=== PATIENT | male | born 1970 | race Caucasian/White ===

== ENCOUNTER 2020-07-04 22:05 | Inpatient (IN) ==
--- OUTSIDE RECORDS SUMMARY | 2020-07-04 22:08 | External Medical Summary | Continuity of Care Document ---
:1970 Author Name Kerry High, Provider Address Unavailable Unavailable , Care Team Providers Name Role Phone Maite High, Ashely Unavailable [email or web address] Unavailable Problems Chronic kidney disease (585.9) (N18.9) Hypertension (401.9) (I10) Gout (274.9) (M10.9) Allergies and Adverse Reactions No Known Drug Allergies (Allergy) Medications Medications not documented Procedures Procedures not documented Immunizations PPD On: 26-Nov-2016 8:13 Lot #: [id number], [employer]FI PA[employer]UR Social History - Smoking Status Never smoked tobacco Plan of Treatment Planned Observations Planned Goals not documented Results No Known Results Results not documented Encounters Appointment; Nurse Radha 28-Nov-2016 7:15 Encounter Diagnosis: Problem not documented
[2020-07-04] MEDS ORDERED: GI COCKTAIL ED USE PO ONE (22:22)
--- NOTE | 2020-07-04 22:22 | Emergency Department Note ---
History of Present Illness General Chief complaint: Abdominal Pain Stated complaint: AB PAIN Time Seen by Provider: 07/04/20 22:12 History of Present Illness This is a 49-year-old male that presents to the emergency department via ambulance with complaints of "abdominal pain". The patient notes that this evening he ate an omelette with sausage as well as spinach, mushrooms and salsa. Then around 8 PM he began with what he describes as an indigestion sensation. This was periumbilical and radiated superiorly just under the diaphragm. He notes he has had 4 episodes that were brief in nature but were severe in regard to level of pain. He was concerned therefore prompting arrival here via ambulance. No trauma or injury. No fevers or chills. No chest pain or shortness of breath. No headache. Patient does note a past medical history for that of kidney disease. He notes that he has not seen his kidney specialist about 3-5 years and has not seen a PCP in about the same amount of time. He does not currently take any antihypertensives. No nausea or vomiting. He has never had any pain quite like this before. He does also note that about 3 weeks ago he had symptoms of which he thought were likely Covid, he had back and body aches. He feels much better now. No current abdominal pain at this time. Home Medications Medication Instructions Recorded Confirmed Type No Known Home Medications 07/05/20 07/05/20 History Allergies Allergy/AdvReac Type Severity Reaction Status Date / Time No Known Allergies Allergy Unknown Verified 07/05/20 00:26 Past Med/Surg History Medical History (Updated 07/05/20 @ 01:41 by Chase Nichols PA-C) Hx of kidney disease Surgical History No pertinent past surgical history Social History Smoking Status: Never smoker Preferred Language: Sami Feels Safe at Home: Yes Review of Systems A total of 10 systems reviewed and were otherwise negative Physical Exam Vital Signs Vital Signs - 24 hr 07/04/20 22:05 07/04/20 23:00 07/04/20 23:30 Temperature 37 C Temperature Source Oral Pulse Rate 72 80 76 Pulse Rhythm Regular Pulse Strength Normal Respiratory Rate 20 22 16 Respiratory Effort / Characteristics Non-Labored Spontaneous Respiratory Depth Normal Respiratory Pattern Regular Blood Pressure 255/130 H 233/126 H 234/123 H Blood Pressure Mean 171 161 146 Blood Pressure Position Lying Pulse Oximetry 96 96 97 Oxygen Delivery Method Room Air Sepsis Recent Fever Within 48 Hours No Sepsis New/Unexplained Change in Mental Status N/A Sepsis Action Taken by Nursing No Action Required 07/04/20 23:46 07/05/20 00:00 07/05/20 00:30 Temperature Temperature Source Pulse Rate 73 72 77 Pulse Rhythm Pulse Strength Respiratory Rate 16 18 20 Respiratory Effort / Characteristics Respiratory Depth Respiratory Pattern Blood Pressure 233/123 H 220/110 H 249/129 H Blood Pressure Mean 148 150 168 Blood Pressure Position Pulse Oximetry 96 96 96 Oxygen Delivery Method Sepsis Recent Fever Within 48 Hours Sepsis New/Unexplained Change in Mental Status Sepsis Action Taken by Nursing 07/05/20 00:51 07/05/20 01:00 Temperature Temperature Source Pulse Rate 71 74 Pulse Rhythm Pulse Strength Respiratory Rate 16 18 Respiratory Effort / Characteristics Respiratory Depth Respiratory Pattern Blood Pressure 220/116 H 221/127 H Blood Pressure Mean 135 138 Blood Pressure Position Pulse Oximetry 96 94 Oxygen Delivery Method Sepsis Recent Fever Within 48 Hours Sepsis New/Unexplained Change in Mental Status Sepsis Action Taken by Nursing VITAL SIGNS - Vital signs and nursing notes were reviewed. Significantly hypertensive, otherwise stable. GENERAL -49-year-old male appearing his stated age who is in no acute distress. Communicates well with provider and answers questions appropriately. SKIN - Without rashes. No meningeal or petechial rash. HEAD - NC/AT. EYES - PERRL with EOMI bilaterally. Sclera anicteric. EARS - No deformities of external structures noted on gross examination bilaterally. NOSE - Midline and without cyanosis. NECK - Neck with FROM. No nuchal rigidity. LUNGS - Chest wall symmetric without accessory muscle use, intercostals retractions, or central cyanosis. Normal vesicular breath sounds CTA B/L. No wheezes, rales, or rhonchi appreciated. CARDIAC - RRR with S1/S2. No murmur, rubs, or gallops appreciated. ABDOMEN - Abdominal contour normal without pulsations or visible masses. BS normoactive all four quadrants. Mild epigastric abdominal tenderness to palpation. No palpable masses, hepatosplenomegaly, or ascites noted. EXTREMITIES - No clubbing or peripheral cyanosis. +5/5 strength noted in UE/LE bilaterally. NEUROLOGIC - Cranial nerves II through XII grossly intact. PSYCH - A&O, and cooperates fully with examiner. Pt is very pleasant and interacts well with examiner. Course Administered Medications Discontinued Medications Al Hydrox/Mg Hydrox/Simethicone (Gi Cocktail Ed Use) 1 dose PO ONE ONE Stop: 07/04/20 22:23 Last Admin: 07/04/20 22:31 Dose: 1 dose Documented by: [id number] Ioversol (Optiray 320 125ml) 125 ml IV ONCE ONE Stop: 07/04/20 23:13 Last Admin: 07/04/20 23:12 Dose: 118 ml Documented by: [id number] Labetalol HCl (Labetalol Hcl Iv 5 Mg/Ml 20ml) 10 mg IV NOW STA Stop: 07/04/20 22:53 Last Admin: 07/04/20 23:41 Dose: 10 mg Documented by: [id number] Cosigned by: [id number] Medical Decision Making Laboratory Data Result diagrams: 07/04/20 22:20 07/04/20 22:20 Lab Results 07/04/20 07/04/20 07/04/20 Range/Units 22:20 22:20 22:20 WBC 16.41 H (4.8-10.8) K/uL RBC 5.07 (4.7-6.1) M/uL Hgb 14.3 (14.0-18.0) g/dL Hct 44.0 (42-52) % MCV 86.8 (80-100) fL MCH 28.2 (25-34) pg MCHC 32.5 (32-36) g/dL RDW Std Deviation 43.8 (36.4-46.3) fL RDW Coeff of Bret 14.0 (11.5-14.5) % Plt Count 165 (130-400) K/uL MPV 12.9 H (7.4-10.4) fL Immature Gran % (Auto) 0.3 % Neut % (Auto) 84.4 % Lymph % (Auto) 9.6 % Anderson % (Auto) 4.9 % Eos % (Auto) 0.6 % Baso % (Auto) 0.2 % Neut # (Auto) 13.85 H (1.4-6.5) K/uL Lymph # (Auto) 1.57 (1.2-3.4) K/uL Anderson # (Auto) 0.81 H (0.11-0.59) K/uL Eos # (Auto) 0.10 (0-0.5) K/uL Baso # (Auto) 0.03 (0-0.2) K/uL Immature Gran # (Auto) 0.05 H (0.00-0.02) K/uL PT 10.3 (9.0-12.0) Seconds INR 1.0 (0.9-1.1) APTT 28.9 (21.0-31.0) Seconds PTT Ratio 1.0 Sodium 141 (136-145) mmol/L Potassium 3.6 (3.5-5.1) mmol/L Chloride 105 (98-107) mmol/L Carbon Dioxide 28 (21-32) mmol/L Anion Gap 7.0 (3-11) BUN 32 H (7-18) mg/dl Creatinine 1.74 H (0.6-1.4) mg/dl Est Cr Clr Drug Dosing 66.9 ml/min Est GFR ( Amer) 52.2 Est GFR (Non-Af Amer) 45.0 BUN/Creatinine Ratio 18.3 (10-20) Glucose 109 H (70-99) mg/dl Calcium 9.3 (8.5-10.1) mg/dl Magnesium 2.0 (1.8-2.4) mg/dl Total Bilirubin 0.7 (0.2-1) mg/dl AST 85 H (15-37) U/L ALT 61 (12-78) U/L Alkaline Phosphatase 81 (45-117) U/L Troponin I 0.031 (0-0.045) ng/ml Total Protein 7.4 (6.4-8.2) gm/dl Albumin 3.3 L (3.4-5.0) gm/dl Globulin 4.1 H (2.5-4.0) gm/dl Albumin/Globulin Ratio 0.8 L (0.9-2) Lipase 1940 H (73-393) U/L TSH 3.250 (0.300-4.500) uIu/ml Urine Color Urine Appearance (Clear) Urine pH (4.5-7.5) Ur Specific [place] (1.000-1.030) Urine Protein (Negative) Urine Glucose (UA) (Negative) Urine Ketones (Negative) Urine Blood (Negative) Urine Nitrite (Negative) Urine Bilirubin (Negative) Urine Urobilinogen (Negative) Ur Leukocyte Esterase (Negative) Urine WBC (Auto) (0-5) /hpf Urine RBC (Auto) (0-4) /hpf U Hyaline Cast (Auto) (0-5) /lpf U Epithel Cells (Auto) (0-5) /lpf Urine Bacteria (Auto) (Negative) SARS-CoV-2 Ag (Rapid) (Negative) 07/05/20 07/05/20 Range/Units 00:01 00:55 WBC (4.8-10.8) K/uL RBC (4.7-6.1) M/uL Hgb (14.0-18.0) g/dL Hct (42-52) % MCV (80-100) fL MCH (25-34) pg MCHC (32-36) g/dL RDW Std Deviation (36.4-46.3) fL RDW Coeff of Bret (11.5-14.5) % Plt Count (130-400) K/uL MPV (7.4-10.4) fL Immature Gran % (Auto) % Neut % (Auto) % Lymph % (Auto) % Anderson % (Auto) % Eos % (Auto) % Baso % (Auto) % Neut # (Auto) (1.4-6.5) K/uL Lymph # (Auto) (1.2-3.4) K/uL Anderson # (Auto) (0.11-0.59) K/uL Eos # (Auto) (0-0.5) K/uL Baso # (Auto) (0-0.2) K/uL Immature Gran # (Auto) (0.00-0.02) K/uL PT (9.0-12.0) Seconds INR (0.9-1.1) APTT (21.0-31.0) Seconds PTT Ratio Sodium (136-145) mmol/L Potassium (3.5-5.1) mmol/L Chloride (98-107) mmol/L Carbon Dioxide (21-32) mmol/L Anion Gap (3-11) BUN (7-18) mg/dl Creatinine (0.6-1.4) mg/dl Est Cr Clr Drug Dosing ml/min Est GFR ( Amer) Est GFR (Non-Af Amer) BUN/Creatinine Ratio (10-20) Glucose (70-99) mg/dl Calcium (8.5-10.1) mg/dl Magnesium (1.8-2.4) mg/dl Total Bilirubin (0.2-1) mg/dl AST (15-37) U/L ALT (12-78) U/L Alkaline Phosphatase (45-117) U/L Troponin I (0-0.045) ng/ml Total Protein (6.4-8.2) gm/dl Albumin (3.4-5.0) gm/dl Globulin (2.5-4.0) gm/dl Albumin/Globulin Ratio (0.9-2) Lipase (73-393) U/L TSH (0.300-4.500) uIu/ml Urine Color Yellow Urine Appearance Clear (Clear) Urine pH 7.5 (4.5-7.5) Ur Specific [place] 1.028 (1.000-1.030) Urine Protein 2+ H (Negative) Urine Glucose (UA) Negative (Negative) Urine Ketones Negative (Negative) Urine Blood Trace H (Negative) Urine Nitrite Negative (Negative) Urine Bilirubin Negative (Negative) Urine Urobilinogen Negative (Negative) Ur Leukocyte Esterase Negative (Negative) Urine WBC (Auto) 1-5 (0-5) /hpf Urine RBC (Auto) 0-4 (0-4) /hpf U Hyaline Cast (Auto) 0 (0-5) /lpf U Epithel Cells (Auto) 5-10 H (0-5) /lpf Urine Bacteria (Auto) Negative (Negative) SARS-CoV-2 Ag (Rapid) Negative (Negative) Imaging Data Radiologist's Impression: CTA CHEST: No pulmonary embolism or acute aortic syndrome. Left lower lobe airspace opacities, nonspecific. Differential of pneumonia versus aspiration. Few scattered pulmonary nodules the largest in the right upper lobe measuring 6 mm on image 2-17. Radiologist: Rick Mueller MD Study ready at 23:32 and initial results transmitted at 23:43 CTA ABDOMEN & PELVIS With Contrast: Normal caliber of the abdominal aorta. No dissection. Branch vessels are widely patent. Liver, gallbladder, pancreas, and spleen are unremarkable. Nonobstructing nephrolithiasis in the right kidney. No obstructive uropathy. Colonic diverticulosis without diverticulitis. Radiologist: Rick Mueller MD Study ready at 23:39 and initial results transmitted at 23:45 MDM Narrative Patient was seen and evaluated as above in room a 12. Review was performed of nursing notes and vital signs. I did review pertinent previous visits and p atient history. After obtaining a thorough history and physical examination the above work up was performed. Patient presents to us today via ambulance with 4 episodes of severe abdominal pain. Currently asymptomatic. He is mildly tender in the epigastric region. Clinically he looks well. He does have significantly elevated blood pressure at this time. Although this may be a chronic finding, certainly will be treated as acute until proven otherwise. Given presentation, CTA chest, abdomen pelvis obtained particularly secondary to blood pressure as well. Benefit versus risk of these discussed with the patient and through shared decision making decided to proceed. Results as above. Reassuringly negative for any emergent process. Laboratory studies reveal mild leukocytosis 16.41 without anemia. Patient does have evidence of SATYA with creatinine 1.74 BUN at 32. AST 85. Lipase mildly elevated. TSH reveals euthyroid state. Proteinuria and mild hematuria noted. No evidence of UTI. Covid testing negative. EKG per my interpretation reveals sinus rhythm with PAC. Rate of 76 bpm. No ischemic change. QTc 459. Patient was previously on antihypertensives and does not take these any longer. He has not had his blood pressure checked in several years. Although the significant elevated blood pressure here could be chronic, he was given a one-time dose of labetalol to help minimally lower this in an attempt to move towards better blood pressure values for his overall benefit. I do believe that further evaluation and management in the inpatient setting would be warranted secondary to his significant hypertension. Case discussed with the hospitalist. Please refer to further documentation regarding his stay. Case was discussed with the attending physician. An order was placed for continuous cardiac monitoring. The monitor shows a rate of 74 with sinus rhythm. I attest that I have personally reviewed the patient medication list. I attest that I have reviewed the patient's blood pressure and it was found to be significantly elevated. GCS: 15 In the evaluation and treatment of this patient the following differential diagnoses were entertained: AL, PE, pericarditis, costochondritis, myocarditis, dissection, PE, GI upset, gastritis, esophagitis, food poisoning, among others. Impression & Plan Hypertensive urgency, Abdominal pain, acute, epigastric Discharge Plan Visit Data Chief Complaint: Abdominal Pain Stated Complaint: AB PAIN ED Provider: Satya Carrasco ED Midlevel Provider: Chsae Nichols Discharge Problem: Hypertensive urgency, Abdominal pain, acute, epigastric Patient Disposition: Admitted As Inpatient Condition: Good Forms Stand Alone Forms: [facility], Virtual Emergency Department, Important Visit Information Prescriptions Prescriptions: No Action No Known Home Medications RF: 0 Referrals Referrals: PCP,NO [Primary Care Provider] -
[2020-07-04 22:36] LABS: Basophils # (auto) 0.03 K/uL (0-0.2); Basophils % (auto) 0.2 %; Eosinophils % (auto) 0.6 %; Hemoglobin 14.3 g/dL (14.0-18.0); Immature Granulocytes # (auto) 0.05 K/uL (0.00-0.02); Immature Granulocytes % (auto) 0.3 %; Lymphocytes # (auto) 1.57 K/uL (1.2-3.4); Lymphocytes % (auto) 9.6 %; Mean Corpuscular Hemoglobin 28.2 pg (25-34); Mean Corpuscular Hgb Conc 32.5 g/dL (32-36); Mean Corpuscular Volume 86.8 fL (80-100); Mean Platelet Volume 12.9 fL (7.4-10.4); Monocytes # (auto) 0.81 K/uL (0.11-0.59); Monocytes % (auto) 4.9 %; Neutrophils # (auto) 13.85 K/uL (1.4-6.5); Neutrophils % (auto) 84.4 %; Platelet Count 165 K/uL (130-400); RDW Standard Deviation 43.8 fL (36.4-46.3); Red Blood Count 5.07 M/uL (4.7-6.1); White Blood Count 16.41 K/uL (4.8-10.8)
[2020-07-04] MEDS ORDERED: LABETALOL HCL IV 5 MG/ML 20ML IV STA (22:52)
[2020-07-04 22:56] LABS: Albumin Level 3.3 gm/dl (3.4-5.0); BUN Creatinine Ratio 18.3 (10-20); Calcium 9.3 mg/dl (8.5-10.1); Creatinine Clr Calc Pharmacy 66.9 ml/min; Est GFR (African American) 52.2; Potassium 3.6 mmol/L (3.5-5.1)
[2020-07-04 22:57] LABS: Partial Thromboplastin Time 28.9 Seconds (21.0-31.0); Prothrombin Time 10.3 Seconds (9.0-12.0)
[2020-07-04 23:07] LABS: Albumin Globulin Ratio 0.8 (0.9-2); Bilirubin,Total 0.7 mg/dl (0.2-1); Globulin 4.1 gm/dl (2.5-4.0); Thyroid Stimulating Hormone 3.25 uIu/ml (0.300-4.500); Total Protein 7.4 gm/dl (6.4-8.2); Troponin I 0.031 ng/ml (0-0.045)
[2020-07-04] MEDS ORDERED: OPTIRAY 320 125ml IV ONE (23:12)
[2020-07-05 00:16] LABS: Appearance Urine Clear (Clear); Bacteria Urine Automated Negative (Negative); Bilirubin Urine Negative (Negative); Blood Urine Trace (Negative); Cast Urine Automated 0 /lpf (0-5); Color Urine Yellow; Glucose Urine UA Negative (Negative); Ketones Urine Negative (Negative); Leukocyte Esterase Urine Negative (Negative); Nitrite Urine Negative (Negative); RBC Urine Automated 0-4 /hpf (0-4); Specific Gravity Urine 1.028 (1.000-1.030); Urobilinogen Urine Negative (Negative); pH Urine 7.5 (4.5-7.5)
[2020-07-05 00:18] LABS: Protein Urine 2+ (Negative)
[2020-07-05 00:19] LABS: Sulfosalicylic Acid Urine Positive (Negative)
[2020-07-05] MEDS ORDERED: dilTIAZem HCl 5 MG/ML 5 ML VIAL IV STA (01:48)
--- NOTE | 2020-07-05 01:50 | History & Physical Report ---
Date of Service July 05, 2020 Assessment & Plan (1) Food poisoning: Symptoms and history are suggestive of toxin induced food poisoning. Treat symptomatically with Zofran IV and IV fluid rehydration. Present on Admission?: Yes (2) Serum lipase elevation: Serum lipase elevated at 1940. CT of abdomen pelvis negative. Likely secondary to gastroenteritis associated with food poisoning. Repeat laboratories. Present on Admission?: Yes (3) Hypertensive urgency: Blood pressure was 249/129, with heart rate 80. He was given labetalol 10 mg IV by the ED with minimal improvement. Suspect his blood pressure has been chronically elevated and will have some resistance. Placed on Cardizem 10 mg IV now, and every 4 hours as needed systolic blood pressure greater than 160. Start Cardizem CD 60 mg p.o. 4 times daily. Present on Admission?: Yes (4) Chronic kidney disease (CKD): Creatinine 1.74 upon admission, with unknown baseline. Patient reports history of kidney disease and was followed by nephrology Dr. Maynard. Gentle rehydration with normal saline, repeat BMP, monitor blood pressure closely. Present on Admission?: Yes History of Present Illness Chief Complaint: The patient presents to the emergency department with complaint of acute onset of abdominal pain at 8:00 PM, after eating an omelette with sausage at 5:30 PM. Primary Care Provider: NO PCP The patient is a 49-year-old male with a past medical history including hypertension, CKD, and obesity. He presents to the emergency department with acute onset abdominal pain as noted above after eating an omelette with sausage. Upon questioning, he reports that the eggs were initially purchased in March by his son who was at college, who brought them home recently. He also reports that he had been followed by nephrology Dr. Maynard several years ago, had been on blood pressure medications, that were ultimately stopped because he had had weight loss and blood pressure improved. He has not followed up with anyone in the medical profession for approximately the past 5 years. Work-up in the emergency department included the following abnormal laboratories: WBC 16.41 with left shift, creatinine 1.74, BUN 32, glucose 109, AST 85, albumin 3.3, lipase 1940, and negative COVID-[address] scan of abdomen and pelvis was normal. Allergies Allergy/AdvReac Type Severity Reaction Status Date / Time No Known Allergies Allergy Unknown Verified 07/05/20 00:26 Home Medications Medication Instructions Recorded Confirmed Type No Known Home Medications 07/05/20 07/05/20 History Past Med/Surg History Medical History (Updated 07/05/20 @ 04:59 by Josias Ann MD) Hx of kidney disease Surgical History No pertinent past surgical history Social History Smoking Status: Never smoker Hx Alcohol Use: Yes Alcohol type: beer Hx Substance Use: No Preferred Language: Gibraltarian Communication Ability: Effective First Aid Director Required: No Beliefs That Will Affect Care: None Current Living Situation: Spouse Other Information That Helps Us Care for You: No Feels Safe at Home: Yes Safety Concerns: Feels Safe At This Time Assistive Devices: Contacts Review of Systems Review of Systems: The patient denies chest pain, palpitations, shortness of breath, dyspnea on exertion, cough, lower extremity swelling, sore throat, fevers, chills, sweats, vomiting, diarrhea, blood in urine or stool, dysuria, urinary frequency or urgency, lightheadedness, dizziness, headache, memory loss, loss of consciousness, rash, abnormal bruising or bleeding, imbalance, focal or generalized weakness, numbness or tingling in arms or legs, generalized arthralgias or myalgias, back or neck pain, or night sweats. The review of systems is otherwise negative other than for that already noted above, and at least 10 systems have been reviewed. Physical Exam Physical Exam: The patient is awake, alert and oriented 3, well developed and well nourished, normocephalic and atraumatic, lying in bed and in no acute distress. HEENT--PERRL, EOMI, mucous membranes and oropharynx dry. Neck--supple. No JVD. No bruits. Thyroid normal, trachea midline, no adenopathy. Heart--normal S1 and S2. No murmurs, rubs or gallops. Lungs--clear bilaterally, no respiratory distress, no accessory muscle use. Abdomen--normal bowel sounds and soft. Nontender. Nondistended. Obese Extremities--no cyanosis or clubbing. No edema. Dermatologic--normal skin turgor, normal color, no abnormal lymph nodes, no rash. Neurologic--cranial nerves II through XII grossly intact. Rheumatologic--normal range of motion. Psychiatric--normal affect. Results & Data Results & Data ([facility]) Vital Signs (Past 12 Hours) Vital Signs Temp Pulse Resp BP Pulse Ox 07/05/20 01:00 74 18 221/127 H 94 07/05/20 00:51 71 16 220/116 H 96 07/05/20 00:30 77 20 249/129 H 96 07/05/20 00:00 72 18 220/110 H 96 07/04/20 23:46 73 16 233/123 H 96 07/04/20 23:30 76 16 234/123 H 97 07/04/20 23:00 80 22 233/126 H 96 07/04/20 22:05 98.6 F 72 20 255/130 H 96 Laboratory Results Laboratory Results WBC 16.41 K/uL (4.8-10.8) H 07/04/20 22:20 RBC 5.07 M/uL (4.7-6.1) 07/04/20 22:20 Hgb 14.3 g/dL (14.0-18.0) 07/04/20 22:20 Hct 44.0 % (42-52) 07/04/20 22:20 MCV 86.8 fL (80-100) 07/04/20 22:20 MCH 28.2 pg (25-34) 07/04/20 22:20 MCHC 32.5 g/dL (32-36) 07/04/20 22:20 RDW Std Deviation 43.8 fL (36.4-46.3) 07/04/20 22:20 RDW Coeff of Bret 14.0 % (11.5-14.5) 07/04/20 22:20 Plt Count 165 K/uL (130-400) 07/04/20 22:20 MPV 12.9 fL (7.4-10.4) H 07/04/20 22:20 Immature Gran % (Auto) 0.3 % 07/04/20 22:20 Neut % (Auto) 84.4 % 07/04/20 22:20 Lymph % (Auto) 9.6 % 07/04/20 22:20 Frio % (Auto) 4.9 % 07/04/20 22:20 Eos % (Auto) 0.6 % 07/04/20 22:20 Baso % (Auto) 0.2 % 07/04/20 22:20 Neut # (Auto) 13.85 K/uL (1.4-6.5) H 07/04/20 22:20 Lymph # (Auto) 1.57 K/uL (1.2-3.4) 07/04/20 22:20 Frio # (Auto) 0.81 K/uL (0.11-0.59) H 07/04/20 22:20 Eos # (Auto) 0.10 K/uL (0-0.5) 07/04/20 22:20 Baso # (Auto) 0.03 K/uL (0-0.2) 07/04/20 22:20 Immature Gran # (Auto) 0.05 K/uL (0.00-0.02) H 07/04/20 22:20 PT 10.3 Seconds (9.0-12.0) 07/04/20 22:20 INR 1.0 (0.9-1.1) 07/04/20 22:20 APTT 28.9 Seconds (21.0-31.0) 07/04/20 22:20 PTT Ratio 1.0 07/04/20 22:20 Sodium 141 mmol/L (136-145) 07/04/20 22:20 Potassium 3.6 mmol/L (3.5-5.1) 07/04/20 22:20 Chloride 105 mmol/L (98-107) 07/04/20 22:20 Carbon Dioxide 28 mmol/L (21-32) 07/04/20 22:20 Anion Gap 7.0 (3-11) 07/04/20 22:20 BUN 32 mg/dl (7-18) H 07/04/20 22:20 Creatinine 1.74 mg/dl (0.6-1.4) H 07/04/20 22:20 Est Cr Clr Drug Dosing 66.9 ml/min 07/04/20 22:20 Est GFR ( Amer) 52.2 07/04/20 22:20 Est GFR (Non-Af Amer) 45.0 07/04/20 22:20 BUN/Creatinine Ratio 18.3 (10-20) 07/04/20 22:20 Glucose 109 mg/dl (70-99) H 07/04/20 22:20 Calcium 9.3 mg/dl (8.5-10.1) 07/04/20 22:20 Magnesium 2.0 mg/dl (1.8-2.4) 07/04/20 22:20 Total Bilirubin 0.7 mg/dl (0.2-1) 07/04/20 22:20 AST 85 U/L (15-37) H 07/04/20 22:20 ALT 61 U/L (12-78) 07/04/20 22:20 Alkaline Phosphatase 81 U/L (45-117) 07/04/20 22:20 Troponin I 0.031 ng/ml (0-0.045) 07/04/20 22:20 Total Protein 7.4 gm/dl (6.4-8.2) 07/04/20 22:20 Albumin 3.3 gm/dl (3.4-5.0) L 07/04/20 22:20 Globulin 4.1 gm/dl (2.5-4.0) H 07/04/20 22:20 Albumin/Globulin Ratio 0.8 (0.9-2) L 07/04/20 22: Lipase 1940 U/L (73-393) H 07/04/20 22:20 TSH 3.250 uIu/ml (0.300-4.500) 07/04/20 22:20 Urine Color Yellow 07/05/20 00:01 Urine Appearance Clear (Clear) 07/05/20 00:01 Urine pH 7.5 (4.5-7.5) 07/05/20 00:01 Ur Specific [place] 1.028 (1.000-1.030) 07/05/20 00:01 Urine Protein 2+ (Negative) H 07/05/20 00:01 Urine Glucose (UA) Negative (Negative) 07/05/20 00:01 Urine Ketones Negative (Negative) 07/05/20 00:01 Urine Blood Trace (Negative) H 07/05/20 00:01 Urine Nitrite Negative (Negative) 07/05/20 00:01 Urine Bilirubin Negative (Negative) 07/05/20 00:01 Urine Urobilinogen Negative (Negative) 07/05/20 00:01 Ur Leukocyte Esterase Negative (Negative) 07/05/20 00:01 Urine WBC (Auto) 1-5 /hpf (0-5) 07/05/20 00:01 Urine RBC (Auto) 0-4 /hpf (0-4) 07/05/20 00:01 U Hyaline Cast (Auto) 0 /lpf (0-5) 07/05/20 00:01 U Epithel Cells (Auto) 5-10 /lpf (0-5) H 07/05/20 00:01 Urine Bacteria (Auto) Negative (Negative) 07/05/20 00:01 SARS-CoV-2 Ag (Rapid) Negative (Negative) 07/05/20 00:55 Diagnostic Findings [facility] Patient: AVNI SIDDIQI (Male) : 70 Status: ER Date: 07/04/20 23:33 Room #: History: HYPERTENSION WITH ABD PAIN Slices: [phone] Priors: Tech: Aj Lemons @ [phone] Exams: CTA ABDOMEN & PELVIS With Contrast Contrast: IV Amt: 118 ML OPTIRAY 320 Accession Numbers: [id number] Preliminary Findings Only See Final Report For Complete Findings CTA ABDOMEN & PELVIS With Contrast: Normal caliber of the abdominal aorta. No dissection. Branch vessels are widely patent. Liver, gallbladder, pancreas, and spleen are unremarkable. Nonobstructing nephrolithiasis in the right kidney. No obstructive uropathy. Colonic diverticulosis without diverticulitis. Radiologist: Rick Mueller MD Study ready at 23:39 and initial results transmitted at 23:45 *This report constitutes a preliminary interpretation only. Non-acute findings felt to be unrelated to the clinical presentation may not be discussed in this report. The study will be interpreted and a final report will be generated by the local Radiologist the following shift. To reach the hospital radiology department call [phone]. If a discrepancy is found between the preliminary and final interpretations of t his study, please notify us via our Client Portal at [email or web address].You can also fax this report with a description of the discrepancy, or include the final report, to our daytime fax number [phone].If faxing, please indicate the severity of discrepancy using one of the following categories: [ ] 1 - Agree/Informational [ ] 2 - Unlikely to Affect Management [ ] 3 - Possible Eventual Change of Management [ ] 4 - Probable Immediate Change of Management For all other patient related information, please fax us at [phone]. [id number] Code Status & VTE Plan Code Status Full code VTE Prophylaxis Plan VTE Prophylaxis will be ordered: Yes PG Care Time/CCT Total # of Minutes Spent Total Time Spent with Patient: Total time spent is greater than 50% in coordination of care (as documented) at patient's floor/unit and/or counseling patient: Coding Level of Care Code 47909 Initial Inpt Care Lvl 3 Diagnoses Food poisoning A05.9 Serum lipase elevation R74.8 Hypertensive urgency I16.0 Chronic kidney disease (CKD) N18.9
[2020-07-05] MEDS: dilTIAZem HCl 5 MG/ML 5 ML VIAL IV PRN ×2 (02:27→14:03)
[2020-07-05] MEDS ORDERED: dilTIAZem HCl 60 MG TAB PO ONE (03:57)
[2020-07-05] MEDS ORDERED: SODIUM CHLORIDE 0.9% 1000ML 1,000 ML IV SCH (03:57)
[2020-07-05] MEDS ORDERED: ONDANSETRON INJ 2 MG/ML 2 ML VIAL IV PRN (03:57)
[2020-07-05] MEDS ORDERED: INFLUENZA ADMINISTRATION CHARGE ONE (04:15)
[2020-07-05] MEDS ORDERED: INFLUENZA VIRUS QUAD VACCINE 0.5 ML SYR IM ONE (04:15)
--- NOTE | 2020-07-05 06:54 | XRay Report ---
XR chest 1V portable HISTORY: 49 years-old Male epigastric abd pain acute epigastric abdominal pain. Acute atypical chest pain COMPARISON: CTA of the chest 07/04/2020 TECHNIQUE: Portable AP view of the chest FINDINGS: The cardiomediastinal and hilar silhouettes are within normal limits. There is no pneumothorax, pleur al effusion or overt pulmonary edema. Subtle patchy airspace opacities of the left lung base. Spondyl itic spurring of the thoracic spine. IMPRESSION: Minimal patchy airspace opacities of the left lung base are suspicious for pneumonia. ACT 112: Negative or not required by law. The above report was generated using voice recognition software. It may contain grammatical, syntax o r spelling errors. Electronically signed by: Valente Pena M.D. 07/05/2020 6:53 AM
--- NOTE | 2020-07-05 07:20 | CT Scan Report ---
CT ANGIOGRAPHY OF THE CHEST DISSECTION PROTOCOL CLINICAL HISTORY: Significant hypertension, intermittent abdominal pain. COMPARISON STUDY: Chest radiograph July 04, 2020. TECHNIQUE: Before and following the IV administration of 118 mL of Optiray-320, helical axial images of the chest were obtained. Maximal intensity projections and sagittal and coronal reformats were vi ewed on an independent 3D workstation. IV contrast was administered without complication. Automated exposure control was utilized for the study. A dose lowering technique was utilized adhering to the principles of ALARA. FINDINGS: Mild to moderate cardiomegaly is noted. There is no pericardial effusion. The ascending ao rta is ectatic, measuring 4.2 cm. There is no intramural hematoma. No thoracic or dissection is noted . There is no central pulmonary embolus. No enlarged thoracic lymph node are present. No pneumothorax or pleural effusion is noted. Multifocal irregular opacities within the left lower lobe likely refle ct pneumonia. A few right upper lobe pulmonary nodules measure up to 8 mm. Central airways are patent . Bony thorax is unremarkable. Abdomen and pelvis will be reported separately. IMPRESSION: 1. No thoracic aortic dissection. No central pulmonary embolus. Ectatic ascending aorta, measuring 4. 2 cm. 2. Moderate left lower lobe airspace opacities which favor pneumonia. Sequela of aspiration could sherlyn ear similar. A few right upper lobe nodular opacities that measure up to 8 mm. An infectious or infla mmatory etiology is also favored however pulmonary nodules could appear similar. Therefore, a follow- up chest CT in 3 months to ensure resolution is recommended. 3. Cardiomegaly. ACT 112: Positive. There are findings on this exam that require communication between the performing entity and the patient following Patient Test Result Information Act ([place] Act 112) guidelines. Electronically signed by: Ger Peterson M.D. 07/05/2020 7:19 AM
--- NOTE | 2020-07-05 07:56 | CT Scan Report ---
CT angio abdomen pelvis w con CLINICAL HISTORY: 49 years-old Male with Significant hypertension, intermittent abd pain . Acute h ypertension with generalized abdominal pain COMPARISON STUDY: CTA of the chest of same day TECHNIQUE: Following the IV administration of 118 cc of Optiray 320, CT angiogram of the abdomen and pelvis was performed from the lung bases the proximal femora. Images are reviewed in the axial, sagit gia, and coronal planes. 3-D MIPS images are created and assessed. All measurements were obtained acc ording to NASCET criteria. IV contrast was administered without complication. A dose lowering techni que was utilized adhering to the principles of ALARA. CT DOSE: 3264.01 mGy.cm FINDINGS: CTA: Mild to moderate cardiomegaly. 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 Equivocal linear transversely oriented struct ure is noted image 309 and 297 of series 7 which is unlikely to represent an acute dissection. Patent and unremarkable renal arteries. The superior and inferior mesenteric arteries are patent. Unremarka ble common, internal and extra iliac arteries. CT ABDOMEN/PELVIS: Patchy airspace opacities of the basal left lower lobe are partially imaged. There is no pneumatosis or pneumoperitoneum. The spleen and adrenal glands are unremarkable. The pancreatic duct measures the upper limits of normal at the level of the pancreatic head measuring 3-4 mm. No obstructing stone or lesion identified. The common bile duct measures the upper limits of normal at 7 mm. No intrahepatic biliary ductal dilation. There is mild gallbladder distention with equivocal gallbladder wall thicke gasper and pericholecystic stranding. No cholelithiasis identified. Indeterminate 1.5 cm hypodensity of the right hepatic lobe on image 241 series 7. Probable cyst of the right hepatic lobe measures 1.4 c m. There are 3 nonobstructing calculi of the left kidney measuring up to approximately 2-3 mm. A punctat e cortical calcification of the interpolar left kidney is also noted. 8 mm nonobstructing calculus of the interpolar right kidney with a 7 mm nonobstructing calculus of the inferior pole. There are a fe w tiny subcentimeter bilateral renal hypodensities which are incompletely characterized however favor cysts. No ureteral calculi or obstructive uropathy. There is an exophytic 2.7 x 2.0 cm intermediate density lesion of the inferior pole left kidney with [place]oun[place] of 23. Decompressed urinary bladder with wall thickening. Prominent prostate. No adenopathy. Mild nonspecific distal esophageal wall thickening. Colonic diverticulosis without acute diverticulit is. Noninflamed appendix. No ascites or mesenteric inflammation. Unremarkable soft tissues. Surgical clip of the right scrotum is partially imaged. Transitional lumbosacral anatomy. Mostly mild multilev el degenerative changes of the lumbar spine. IMPRESSION: 1. Distended gallbladder with mild gallbladder wall thickening and trace pericholecystic stranding. C orrelation with right upper quadrant ultrasound recommended to exclude acute cholecystitis. This find ing was called/faxed to the floor at time of dictation. 2. Patchy consolidative opacities of the basal left lower lobe suggest pneumonia. 3. Nonobstructing bilateral nephrolithiasis. 4. 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 Follow-up CTA in 6 months is recommended to further characterize. 5. No bowel obstruction or bowel wall thickening. Normal appendix. 6. Probable mildly complex exophytic cyst of the inferior pole left kidney, 2.7 cm. This could furthe r be characterized with ultrasound. 7. Additional findings as above. ACT 112: Negative or not required by law. The above report was generated using voice recognition software. It may contain grammatical, syntax o r spelling errors. Electronically signed by: Valente Pena M.D. 07/05/2020 7:54 AM
--- NOTE | 2020-07-05 08:18 | Hospitalist Progress Note ---
Date of Service July 05, 2020 Assessment & Plan (1) Cholecystitis: As seen on CT and gallbladder US Gen surg consulted - will go to OR tomorrow for cholecystectomy Continue Zosyn NPO after midnight (2) Pneumonia: Patchy consolidation seen in left lower lobe Patient's and family all diagnosed with COVID on Black Saturday and patient was symptomatic as well although he never received the results for the swab he had done. The rapid antigen test in the ED was negative. Will recheck with PCR Zosyn and azithromycin as likely patient may have secondary pneumonia following COVID infection (3) Serum lipase elevation: Serum lipase elevated at 1940, wnl on recheck CT of abdomen pelvis negative for pancreatitis (4) Hypertensive urgency: Blood pressure 180s-212/100-130 He was given labetalol 10 mg IV by the ED with minimal improvement. Suspect his blood pressure has been chronically elevated and will have some resistance especially given multiple aneurysms found on CT Continue cardizem 60 mg QID, cardizem 10 mg q4h prn, added captopril 12.5 mg now that kidney function is at baseline Start Cardizem CD 60 mg p.o. 4 times daily. (5) Chronic kidney disease (CKD): Creatinine 1.74 upon admission - patient reports baseline is 1.4-1.5 as of five years ago. Now at his baseline with creat of 1.42 Patient reports history of kidney disease and was followed by nephrology Dr. Maynard. 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 Follow-up CTA in 6 months is recommended to further characterize. Additionally on CTA of the chest: Ectatic ascending aorta, measuring 4.2 cm. Follow with pcp (7) Kidney cysts: Probable mildly complex exophytic cyst of the inferior pole left kidney, 2.7 cm. This could further be characterized with ultrasound. (8) Esophageal thickening: Mild nonspecific distal esophageal wall thickening. Follow with pcp (9) Pulmonary nodule: On CTA: A few right upper lobe nodular opacities that measure up to 8 mm. An infectious or inflammatory etiology is also favored however pulmonary nodules could appear similar. Therefore, a follow-up chest CT in 3 months to ensure resolution is recommended. Follow with pcp (10) Transaminitis: transaminases 215 and 271, alk phos 130, bili not elevated Continue to trend (11) DVT prophylaxis: SCDs, hold chemoprophylaxis in preparation for surgery Admission and Anticipated Discharge Date Admission Date: July 05, 2020 Subjective Mr. Chu is feeling better this morning. He does not have the abdominal pressure he was feeling pre hospital. The sob has improved. No cough, no chest pain. He is not nauseas. Review of Systems Constitutional: no fever, no chills and no body aches Cardiovascular: no chest pain and no palpitations Gastrointestinal: no abdominal pain, no nausea and no vomiting Genitourinary: no dysuria and no urinary hesitancy Musculoskeletal: no back pain and no joint pain Integumentary: no rash Physical Exam Physical Exam: General: no distress Eyes: normal inspection, PERLL Respiratory: chest non tender, clear to auscultation, normal breath sounds, no respiratory distress, no accessory muscle use Cardiac: regular rate and rhythm, no rub or gallop, no murmur, no edema, no jvd GI/: active bowel sounds, no abd pain or tenderness, soft, non distended Extremities: normal range of motion, normal strength, non tender Neuro/Psych: alert and oriented x 3, normal mood and affect Skin: normal color, dry Results & Data Results & Data ([facility]) Vital Signs (Past 12 Hours) Vital Signs Temp Pulse Pulse Resp BP BP Pulse Ox 07/05/20 03:45 37.3 C 70 20 200/86 H 96 07/05/20 03:00 69 18 210/116 H 96 07/05/20 02:39 73 18 204/111 H 95 07/05/20 02:30 69 16 184/125 H 95 07/05/20 02:00 69 20 187/125 H 96 07/05/20 01:30 74 22 232/142 H 96 07/05/20 01:00 74 18 221/127 H 94 07/05/20 00:51 71 16 220/116 H 96 07/05/20 00:30 77 20 249/129 H 96 07/05/20 00:00 72 18 220/110 H 96 07/04/20 23:46 73 16 233/123 H 96 07/04/20 23:30 76 16 234/123 H 97 07/04/20 23:00 80 22 233/126 H 96 07/04/20 22:05 37 C 72 20 255/130 H 96 PG Care Time/CCT Total # of Minutes Spent Total Time Spent with Patient: Total time spent is greater than 50% in coordination of care (as documented) at patient's floor/unit and/or counseling patient: Coding Level of Care Code 00799 Subseq Hosp Care Lvl 3 Diagnoses Cholecystitis K81.9 Pneumonia J18.9 Serum lipase elevation R74.8 Hypertensive urgency I16.0 Chronic kidney disease (CKD) N18.9 Aneurysm I72.9 Kidney cysts N28.1 Esophageal thickening K22.8 Pulmonary nodule R91.1 Transaminitis R74.01 DVT prophylaxis Z29.9
[2020-07-05] MEDS ORDERED: PIPERACILL/TAZOBAC CONSULT ACTIVE PRN (08:33)
[2020-07-05] MEDS ORDERED: AZITHROMYCIN 500 MG in DEXTROSE 5% 250 ML IV ONE (08:45)
[2020-07-05] MEDS ORDERED: PIPERACILLIN/TAZOBACTAM 3.375 GM in DEXTROSE 5% 100 ML IV ONE (09:00)
[2020-07-05 09:06] LABS: Hemoglobin 15.1 g/dL (14.0-18.0); Mean Corpuscular Hemoglobin 28.3 pg (25-34); Mean Corpuscular Hgb Conc 32.8 g/dL (32-36); Mean Corpuscular Volume 86.1 fL (80-100); Mean Platelet Volume 13.7 fL (7.4-10.4); Platelet Count 170 K/uL (130-400); RDW Coefficient of Variation 14.3 % (11.5-14.5); Red Blood Count 5.34 M/uL (4.7-6.1); White Blood Count 9.35 K/uL (4.8-10.8)
--- NOTE | 2020-07-05 09:15 | Ultrasound Report ---
US gallbladder HISTORY: 49 years-old Male r/o cholecystitis acute right upper quadrant abdominal pain COMPARISON: CTA abdomen and pelvis 07/04/2020 TECHNIQUE: Multiple real-time sonographic images of the abdominal right upper quadrant were obtained assessing grayscale appearance and color flow FINDINGS: The pancreas is obscured by bowel gas. Distended gallbladder with shadowing cholelithiasis. Gallbladd er wall measures the upper limits of normal at 3 mm. No definite pericholecystic fluid. Patient was r eportedly tender within the abdominal right upper quadrant however the sonographic Bill sign was re ported as negative. Common bile duct measures 7 mm. No obstructing biliary calculus or lesion. No int rahepatic biliary ductal dilation. Echogenic lesion of the right hepatic lobe, 1.6 x 1.8 x 1.3 cm without color flow. 9 mm nonobstructin g calculus of the right kidney without hydronephrosis. IMPRESSION: 1. Gallbladder distention with cholelithiasis. The gallbladder wall measures within the upper limits of normal at 3 mm. The equivocal pericholecystic edema seen on the CT study of same day is not apprec iated by ultrasound. These findings should be correlated clinically to exclude acute cholecystitis. N [facility] medicine hepatobiliary scan may also be considered. 2. No biliary ductal dilation. 3. Probable hemangioma of the right hepatic lobe, 1.8 cm. ACT 112: Negative or not required by law. The above report was generated using voice recognition software. It may contain grammatical, syntax o r spelling errors. Electronically signed by: Valente Pena M.D. 07/05/2020 9:14 AM
[2020-07-05] MEDS: dilTIAZem HCl 60 MG TAB PO SCH ×4 (09:28→20:08)
[2020-07-05 09:38] LABS: Albumin Level 3.4 gm/dl (3.4-5.0); BUN Creatinine Ratio 16.8 (10-20); Bilirubin Direct 0.2 mg/dl (0-0.2); Calcium 9.5 mg/dl (8.5-10.1); Creatinine Clr Calc Pharmacy 81.2 ml/min; Est GFR (African American) 66.7; Est GFR (Non-African American) 57.6; Potassium 3.9 mmol/L (3.5-5.1)
[2020-07-05 09:41] LABS: Bilirubin,Total 0.8 mg/dl (0.2-1); Total Protein 7.7 gm/dl (6.4-8.2)
[2020-07-05] MEDS: ACETAMINOPHEN 325 MG TAB PO PRN (11:59)
[2020-07-05 12:11] LABS: Troponin I 0.03 ng/ml (0-0.045)
--- NOTE | 2020-07-05 12:12 | Nuclear Medicine Report ---
NM hepatobiliary CLINICAL HISTORY: Abdominal pain. Cholelithiasis. COMPARISON STUDY: Gallbladder ultrasound dated 07/05/2020 FINDINGS: The patient was injected with 5.5 mCi of technetium 99m Choletec. Sequential anterior imagi ng was performed. Hepatic excretion appeared unremarkable. There is normal passage of activity into small bowel. The ga llbladder was first visualized on the 15 minute image. IMPRESSION: Normal study. No evidence of cystic duct obstruction. ACT 112: Negative or not required by law. Electronically signed by: Rashaad Schulz M.D. 07/05/2020 12:10 PM
--- NOTE | 2020-07-05 13:04 | Surgery Consultation ---
Date of Consultation July 05, 2020 Assessment & Plan (1) Acute cholecystitis due to biliary calculus: pt is a 49 year-old male who was admitted to hospital for acute abdominal pain, IMP: acute cholecystitis, cholelithiasis, pancreatitis Plan, I recommend to do laparoscopic cholecystectomy possible open or cholangiogram, D/W benefits, risks and alternatives of the surgery, the risks - infection, bleeding, injury CBD, or other organs, may need ERCP, anesthesia risks and . pt understood, he agrees with the surgery, I answered all questions, -control HTN, -NPO after MN,. -repeat labs in am, CBC, CMP, lipase Present on Admission?: Yes History of Present Illness Attending Physician: CC: acute abdominal pain History of Present Illness Chief Complaint: The patient presents to the emergency department with complaint of acute onset of abdominal pain at 8:00 PM, after eating an omelette with sausage at 5:30 PM. Primary Care Provider: NO PCP The patient is a 49-year-old male with a past medical history including hypertension, CKD, and obesity. He presents to the emergency department with acute onset abdominal pain as noted above after eating an omelette with sausage. Upon questioning, he reports that the eggs were initially purchased in March by his son who was at [employer], who brought them home recently. He also reports that he had been followed by nephrology Dr. Maynard several years ago, had been on blood pressure medications, that were ultimately stopped because he had had weight loss and blood pressure improved. He has not followed up with anyone in the medical profession for approximately the past 5 years. Work-up in the emergency department included the following abnormal laboratories: WBC 16.41 with left shift, creatinine 1.74, BUN 32, glucose 109, AST 85, albumin 3.3, lipase 1940, and negative COVID-[address] scan of abdomen and pelvis was normal. I ( Paul Benitez MD ) got a call for consult acute cholecystitis, I reviewed pt's H/P, labs, CT scan, U/S, HIDA scan with pt, pt feels better, Allergies Allergy/AdvReac Type Severity Reaction Status Date / Time No Known Allergies Allergy Unknown Verified 07/05/20 00:26 Home Medications Medication Instructions Recorded Confirmed Type No Known Home Medications 07/05/20 07/05/20 History Past Med/Surg History Medical History (Updated 07/05/20 @ 04:59 by Josias Ann MD) Hx of kidney disease Surgical History No pertinent past surgical history Social History Smoking Status: Never smoker Hx Alcohol Use: Yes Alcohol type: beer Hx Substance Use: No Preferred Language: French Communication Ability: Effective Fitter Machinist Required: No Beliefs That Will Affect Care: None Current Living Situation: Spouse Other Information That Helps Us Care for You: No Feels Safe at Home: Yes Safety Concerns: Feels Safe At This Time Assistive Devices: Contacts Review of Systems Review of Systems: The patient denies chest pain, palpitations, shortness of breath, dyspnea on exertion, cough, lower extremity swelling, sore throat, fevers, chills, sweats, vomiting, diarrhea, blood in urine or stool, dysuria, urinary frequency or urgency, lightheadedness, dizziness, headache, memory loss, loss of consciousness, rash, abnormal bruising or bleeding, imbalance, focal or generalized weakness, numbness or tingling in arms or legs, generalized arthralgias or myalgias, back or neck pain, or night sweats. The review of systems is otherwise negative other than for that already noted above, and at least 10 systems have been reviewed. Results & Data Results & Data ([facility]) Vital Signs (Past 12 Hours) Vital Signs Temp Pulse Resp BP Pulse Ox 07/05/20 01:00 74 18 221/127 H 94 07/05/20 00:51 71 16 220/116 H 96 07/05/20 00:30 77 20 249/129 H 96 07/05/20 00:00 72 18 220/110 H 96 07/04/20 23:46 73 16 233/123 H 96 07/04/20 23:30 76 16 234/123 H 97 07/04/20 23:00 80 22 233/126 H 96 07/04/20 22:05 98.6 F 72 20 255/130 H 96 Laboratory Results Laboratory Results WBC 16.41 K/uL (4.8-10.8) H 07/04/20 22:20 RBC 5.07 M/uL (4.7-6.1) 07/04/20 22:20 Hgb 14.3 g/dL (14.0-18.0) 07/04/20 22:20 Hct 44.0 % (42-52) 07/04/20 22:20 MCV 86.8 fL (80-100) 07/04/20 22:20 MCH 28.2 pg (25-34) 07/04/20 22:20 MCHC 32.5 g/dL (32-36) 07/04/20 22:20 RDW Std Deviation 43.8 fL (36.4-46.3) 07/04/20 22:20 RDW Coeff of Bret 14.0 % (11.5-14.5) 07/04/20:20 Plt Count 165 K/uL (130-400) 07/04/20 22:20 MPV 12.9 fL (7.4-10.4) H 07/04/20 22:20 Immature Gran % (Auto) 0.3 % 07/04/20 22:20 Neut % (Auto) 84.4 % 07/04/20 22:20 Lymph % (Auto) 9.6 % 07/04/20 22:20 [place] % (Auto) 4.9 % 07/04/20 22:20 Eos % (Auto) 0.6 % 07/04/20 22:20 Baso % (Auto) 0.2 % 07/04/20 22:20 Neut # (Auto) 13.85 K/uL (1.4-6.5) H 07/04/20 22:20 Lymph # (Auto) 1.57 K/uL (1.2-3.4) 07/04/20 22:20 [place] # (Auto) 0.81 K/uL (0.11-0.59) H 07/04/20 22:20 Eos # (Auto) 0.10 K/uL (0-0.5) 07/04/20 22:20 Baso # (Auto) 0.03 K/uL (0-0.2) 07/04/20 22:20 Immature Gran # (Auto) 0.05 K/uL (0.00-0.02) H 07/04/20 22:20 PT 10.3 Seconds (9.0-12.0) 07/04/20 22:20 INR 1.0 (0.9-1.1) 07/04/20 22:20 APTT 28.9 Seconds (21.0-31.0) 07/04/20 22:20 PTT Ratio 1.0 07/04/20 22:20 Sodium 141 mmol/L (136-145) 07/04/20 22:20 Potassium 3.6 mmol/L (3.5-5.1) 07/04/20 22:20 Chloride 105 mmol/L (98-107) 07/04/20 22:20 Carbon Dioxide 28 mmol/L (21-32) 07/04/20 22:20 Anion Gap 7.0 (3-11) 07/04/20 22:20 BUN 32 mg/dl (7-18) H 07/04/20 22:20 Creatinine 1.74 mg/dl (0.6-1.4) H 07/04/20 22:20 Est Cr Clr Drug Dosing 66.9 ml/min 07/04/20 22:20 Est GFR ( Amer) 52.2 07/04/20 22:20 Est GFR (Non-Af Amer) 45.0 07/04/20 22:20 BUN/Creatinine Ratio 18.3 (10-20) 07/04/20 22:20 Glucose 109 mg/dl (70-99) H 07/04/20 22:20 Calcium 9.3 mg/dl (8.5-10.1) 07/04/20 22:20 Magnesium 2.0 mg/dl (1.8-2.4) 07/04/20 22:20 Total Bilirubin 0.7 mg/dl (0.2-1) 07/04/20 22:20 AST 85 U/L (15-37) H 07/04/20 22:20 ALT 61 U/L (12-78) 07/04/20 22:20 Alkaline Phosphatase 81 U/L (45-117) 07/04/20 22:20 Troponin I 0.031 ng/ml (0-0.045) 07/04/20 22:20 Total Protein 7.4 gm/dl (6.4-8.2) 07/04/20 22:20 Albumin 3.3 gm/dl (3.4-5.0) L 07/04/20 22:20 Globulin 4.1 gm/dl (2.5-4.0) H 07/04/20 22:20 Albumin/Globulin Ratio 0.8 (0.9-2) L 07/04/20 22:20 Lipase 1940 U/L (73-393) H 07/04/20 22:20 TSH 3.250 uIu/ml (0.300-4.500) 07/04/20 22:20 Urine Color Yellow 07/05/20 00:01 Urine Appearance Clear (Clear) 07/05/20 00:01 Urine pH 7.5 (4.5-7.5) 07/05/20 00:01 Ur Specific [place] 1.028 (1.000-1.030) 07/05/20 00:01 Urine Protein 2+ (Negative) H 07/05/20 00:01 Urine Glucose (UA) Negative (Negative) 07/05/20 00:01 Urine Ketones Negative (Negative) 07/05/20 00:01 Urine Blood Trace (Negative) H 07/05/20 00:01 Urine Nitrite Negative (Negative) 07/05/20 00:01 Urine Bilirubin Negative (Negative) 07/05/20 00:01 Urine Urobilinogen Negative (Negative) 07/05/20 00:01 Ur Leukocyte Esterase Negative (Negative) 07/05/20 00:01 Urine WBC (Auto) 1-5 /hpf (0-5) 07/05/20 00:01 Urine RBC (Auto) 0-4 /hpf (0-4) 07/05/20 00:01 U Hyaline Cast (Auto) 0 /lpf (0-5) 07/05/20 00:01 U Epithel Cells (Auto) 5-10 /lpf (0-5) H 07/05/20 00:01 Urine Bacteria (Auto) Negative (Negative) 07/05/20 00:01 SARS-CoV-2 Ag (Rapid) Negative (Negative) 07/05/20 00:55 Diagnostic Findings [facility] Patient: AVNI SIDDIQI (Male) : 70 Status: ER Date: 07/04/20 23:33 Room #: History: HYPERTENSION WITH ABD PAIN Slices: [phone] Priors: Tech: Aj Lemons @ [phone] Exams: CTA ABDOMEN & PELVIS With Contrast Contrast: IV Amt: 118 ML OPTIRAY 320 Accession Numbers: [id number] Preliminary Findings Only See Final Report For Complete Findings CTA ABDOMEN & PELVIS With Contrast: Normal caliber of the abdominal aorta. No dissection. Branch vessels are widely patent. Liver, gallbladder, pancreas, and spleen are unremarkable. Nonobstructing nephrolithiasis in the right kidney. No obstructive uropathy. Colonic diverticulosis without diverticulitis. Allergies Allergy/AdvReac Type Severity Reaction Status Date / Time No Known Allergies Allergy Unknown Verified 07/05/20 00:26 Home Medications Medication Instructions Recorded Confirmed Type No Known Home Medications 07/05/20 07/05/20 History Patient History Medical History (Updated 07/05/20 @ 13:13 by Paul Benitez MD) Hx of kidney disease Surgical History No pertinent past surgical history Social History Smoking Status: Never smoker Hx Alcohol Use: Yes Alcohol type: beer Hx Substance Use: No Preferred Language: French Communication Ability: Effective Fitter Machinist Required: No Beliefs That Will Affect Care: None marital status: Current Living Situation: Spouse Other Information That Helps Us Care for You: No Feels Safe at Home: Yes Safety Concerns: Feels Safe At This Time Assistive Devices: None Review of Systems Review of Systems: All systems reviewed & are unremarkable except as noted in HPI & below Constitutional: as per Subjective / HPI obesity Eyes: as per Subjective / HPI Ear, Nose, Mouth, Throat: as per Subjective / HPI Respiratory: lung nodule Cardiovascular: as per Subjective / HPI Additional Comments: HTN urgency, aneurysm Gastrointestinal: as per Subjective / HPI Genitourinary: + as per Subjective / HPI and + problem reported (kidney cysts) Musculoskeletal: as per Subjective / HPI Integumentary: as per Subjective / HPI Neurologic: as per Subjective / HPI Psychiatric: as per Subjective / HPI Endocrine: as per Subjective / HPI Hematologic / Lymphatic: as per Subjective / HPI Allergy / Immunological: as per Subjective / HPI Physical Exam Constitutional: WD/WN, vitals as above well developed and well nourished Eyes: PERRL, conjunctivae normal, anicteric sclerae ENMT: external ear and nose normal, oropharynx normal Neck: trachea midline, no thyromegaly Respiratory: normal respiratory effort, lungs clear to auscultation normal respiratory effort Cardiovascular: RRR, no murmur, no edema Rate/Rhythm: regular rate and regular rhythm Heart Sounds: normal S1 and normal S2 Gastrointestinal (Abdomen): Percussion/Palpation: + abdomen tender and abdomen soft mild tenderness at RUQ, no rebound pain, no distend, BS + Musculoskeletal: no cyanosis or clubbing, extremities motor strength 5/5 Skin: no rashes, warm and dry Neurologic: awake Psychiatric: Orientation: alert and oriented x 3 Results & Data ([facility]) Vital Signs (Past 12 Hours) Vital Signs Temp Pulse Pulse Resp BP BP Pulse Ox 07/05/20 12:46 37.0 C 78 20 210/105 H 98 07/05/20 08:41 36.4 C L 68 18 186/117 H 95 07/05/20 03:45 37.3 C 70 20 200/86 H 96 07/05/20 03:00 69 18 210/116 H 96 07/05/20 02:39 73 18 204/111 H 95 07/05/20 02:30 69 16 184/125 H 95 07/05/20 02:00 69 20 187/125 H 96 07/05/20 01:30 74 22 232/142 H 96 NM hepatobiliary CLINICAL HISTORY: Abdominal pain. Cholelithiasis. COMPARISON STUDY: Gallbladder ultrasound dated 07/05/2020 FINDINGS: The patient was injected with 5.5 mCi of technetium 99m Choletec. Sequential anterior imaging was performed. Hepatic excretion appeared unremarkable. There is normal passage of activity into small bowel. The gallbladder was first visualized on the 15 minute image. IMPRESSION: Normal study. No evidence of cystic duct obstruction. Laboratory Results Abnormal lab results 07/04/20 07/04/20 07/05/20 Range/Units : 22: 00:01 WBC 16.41 H (4.8-10.8) K/uL MPV 12.9 H (7.4-10.4) fL Neut # (Auto) 13.85 H (1.4-6.5) K/uL [place] # (Auto) 0.81 H (0.11-0.59) K/uL Immature Gran # (Auto) 0.05 H (0.00-0.02) K/uL BUN 32 H (7-18) mg/dl Creatinine 1.74 H (0.6-1.4) mg/dl Glucose 109 H (70-99) mg/dl AST 85 H (15-37) U/L ALT (12-78) U/L Alkaline Phosphatase (45-117) U/L Albumin 3.3 L (3.4-5.0) gm/dl Globulin 4.1 H (2.5-4.0) gm/dl Albumin/Globulin Ratio 0.8 L (0.9-2) Lipase 1940 H (73-393) U/L Urine Protein 2+ H (Negative) Urine Blood Trace H (Negative) U Epithel Cells (Auto) 5-10 H (0-5) /lpf 07/05/20 07/05/20 Range/Units 08:31 08:31 WBC (4.8-10.8) K/uL MPV 13.7 H (7.4-10.4) fL Neut # (Auto) (1.4-6.5) K/uL [place] # (Auto) (0.11-0.59) K/uL Immature Gran # (Auto) (0.00-0.02) K/uL BUN 24 H (7-18) mg/dl Creatinine 1.42 H D (0.6-1.4) mg/dl Glucose (70-99) mg/dl AST 215 H (15-37) U/L ALT 271 H (12-78) U/L Alkaline Phosphatase 130 H (45-117) U/L Albumin (3.4-5.0) gm/dl Globulin (2.5-4.0) gm/dl Albumin/Globulin Ratio (0.9-2) Lipase (73-393) U/L Urine Protein (Negative) Urine Blood (Negative) U Epithel Cells (Auto) (0-5) /lpf Diagnostic Findings US gallbladder HISTORY: 49 years-old Male r/o cholecystitis acute right upper quadrant abdominal pain COMPARISON: CTA abdomen and pelvis 07/04/2020 TECHNIQUE: Multiple real-time sonographic images of the abdominal right upper quadrant were obtained assessing grayscale appearance and color flow FINDINGS: The pancreas is obscured by bowel gas. Distended gallbladder with shadowing cholelithiasis. Gallbladder wall measures the upper limits of normal at 3 mm. No definite pericholecystic fluid. Patient was reportedly tender within the abdominal right upper quadrant however the sonographic Bill sign was reported as negative. Common bile duct measures 7 mm. No obstructing biliary calculus or lesion. No intrahepatic biliary ductal dilation. Echogenic lesion of the right hepatic lobe, 1.6 x 1.8 x 1.3 cm without color flow. 9 mm nonobstructing calculus of the right kidney without hydronephrosis. IMPRESSION: 1. Gallbladder distention with cholelithiasis. The gallbladder wall measures within the upper limits of normal at 3 mm. The equivocal pericholecystic edema seen on the CT study of same day is not appreciated by ultrasound. These findings should be correlated clinically to exclude acute cholecystitis. Nuclear medicine hepatobiliary scan may also be considered. 2. No biliary ductal dilation. 3. Probable hemangioma of the right hepatic lobe, 1.[address] angio abdomen pelvis w con CLINICAL HISTORY: 49 years-old Male with Significant hypertension, intermittent abd pain . Acute hypertension with generalized abdominal pain COMPARISON STUDY: CTA of the chest of same day TECHNIQUE: Following the IV administration of 118 cc of Optiray 320, CT angiogram of the abdomen and pelvis was performed from the lung bases the proximal femora. Images are reviewed in the axial, sagittal, and coronal planes. 3-D MIPS images are created and assessed. All measurements were obtained according to NASCET criteria. IV contrast was administered without complication. A dose lowering technique was utilized adhering to the principles of ALARA. CT DOSE: 3264.01 mGy.cm FINDINGS: CTA: Mild to moderate cardiomegaly. 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 Equivocal linear transversely oriented structure is noted image 309 and 297 of series 7 which is unlikely to represent an acute dissection. Patent and unremarkable renal arteries. The superior and inferior mesenteric arteries are patent. Unremarkable common, internal and extra iliac arteries. CT ABDOMEN/PELVIS: Patchy airspace opacities of the basal left lower lobe are partially imaged. There is no pneumatosis or pneumoperitoneum. The spleen and adrenal glands are unremarkable. The pancreatic duct measures the upper limits of normal at the level of the pancreatic head measuring 3-4 mm. No obstructing stone or lesion identified. The common bile duct measures the upper limits of normal at 7 mm. No intrahepatic biliary ductal dilation. There is mild gallbladder distention with equivocal gallbladder wall thickening and pericholecystic stranding. No cholelithiasis identified. Indeterminate 1.5 cm hypodensity of the right hepatic lobe on image 241 series 7. Probable cyst of the right hepatic lobe measures 1.4 cm. There are 3 nonobstructing calculi of the left kidney measuring up to approximately 2-3 mm. A punctate cortical calcification of the interpolar left kidney is also noted. 8 mm nonobstructing calculus of the interpolar right kidney with a 7 mm nonobstructing calculus of the inferior pole. There are a few tiny subcentimeter bilateral renal hypodensities which are incompletely characterized however favor cysts. No ureteral calculi or obstructive uropathy. There is an exophytic 2.7 x 2.0 cm intermediate density lesion of the inferior pole left kidney with [place] of 23. Decompressed urinary bladder with wall thickening. Prominent prostate. No rashel nopathy. Mild nonspecific distal esophageal wall thickening. Colonic diverticulosis without acute diverticulitis. Noninflamed appendix. No ascites or mesenteric inflammation. Unremarkable soft tissues. Surgical clip of the right scrotum is partially imaged. Transitional lumbosacral anatomy. Mostly mild multilevel degenerative changes of the lumbar spine. IMPRESSION: 1. Distended gallbladder with mild gallbladder wall thickening and trace pericholecystic stranding. Correlation with right upper quadrant ultrasound recommended to exclude acute cholecystitis. This finding was called/faxed to the floor at time of dictation. 2. Patchy consolidative opacities of the basal left lower lobe suggest pneumonia. 3. Nonobstructing bilateral nephrolithiasis. 4. 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 Follow-up CTA in 6 months is recommended to further characterize. 5. No bowel obstruction or bowel wall thickening. Normal appendix. 6. Probable mildly complex exophytic cyst of the inferior pole left kidney, 2.7 cm. This could further be characterized with ultrasound. 7. Additional findings as above.
[2020-07-05] MEDS ORDERED: HEPARIN SOD 5,000 UNIT/0.5 ML VIAL SQ SCH (14:00)
[2020-07-05] MEDS: PIPERACILLIN/TAZOBACTAM 3.375 GM in DEXTROSE 5% 100 ML IV SCH ×2 (16:09→22:33)
--- NOTE | 2020-07-05 16:14 | Electrocardiogram Report ---
Test Reason : Blood Pressure : / mmHG Vent. Rate : 076 BPM Atrial Rate : 076 BPM P-R Int : 152 ms QRS Dur : 098 ms QT Int : 408 ms P-R-T Axes : 018 041 025 degrees QTc Int : 459 ms Sinus rhythm with Premature atrial complexes Minimal voltage criteria for LVH, may be normal variant Possible Anterior infarct , age undetermined Abnormal ECG When compared with ECG of 23-APR-2003 11:07, Premature atrial complexes are now Present QT has lengthened Confirmed by Parker Garcia ([id number]) on 07/05/2020 4:13:43 PM Referred By: REFERRED SELF Confirmed By:Parker Garcia
[2020-07-06] MEDS: PIPERACILLIN/TAZOBACTAM 3.375 GM in DEXTROSE 5% 100 ML IV SCH ×3 (05:44→21:22)
[2020-07-06 05:47] LABS: Basophils # (auto) 0.05 K/uL (0-0.2); Basophils % (auto) 0.6 %; Eosinophils # (auto) 0.33 K/uL (0-0.5); Eosinophils % (auto) 3.8 %; Hematocrit (blood only) 44.8 % (42-52); Hemoglobin 14.8 g/dL (14.0-18.0); Immature Granulocytes # (auto) 0.02 K/uL (0.00-0.02); Immature Granulocytes % (auto) 0.2 %; Lymphocytes # (auto) 1.77 K/uL (1.2-3.4); Lymphocytes % (auto) 20.2 %; Mean Corpuscular Hemoglobin 28.8 pg (25-34); Mean Corpuscular Volume 87.2 fL (80-100); Mean Platelet Volume 12.7 fL (7.4-10.4); Monocytes # (auto) 0.66 K/uL (0.11-0.59); Monocytes % (auto) 7.5 %; Neutrophils # (auto) 5.93 K/uL (1.4-6.5); Neutrophils % (auto) 67.7 %; Platelet Count 168 K/uL (130-400); RDW Coefficient of Variation 14.3 % (11.5-14.5); RDW Standard Deviation 46.1 fL (36.4-46.3); Red Blood Count 5.14 M/uL (4.7-6.1); White Blood Count 8.76 K/uL (4.8-10.8)
[2020-07-06] MEDS: ACETAMINOPHEN 325 MG TAB PO PRN (05:49)
[2020-07-06 06:11] LABS: Albumin Level 3.1 gm/dl (3.4-5.0); BUN Creatinine Ratio 13.9 (10-20); Calcium 8.9 mg/dl (8.5-10.1); Creatinine Clr Calc Pharmacy 66.9 ml/min; Est GFR (African American) 53.3; Potassium 4.3 mmol/L (3.5-5.1)
[2020-07-06 06:14] LABS: Albumin Globulin Ratio 0.8 (0.9-2); Bilirubin,Total 0.8 mg/dl (0.2-1); Globulin 4.1 gm/dl (2.5-4.0); Total Protein 7.2 gm/dl (6.4-8.2)
[2020-07-06] MEDS ORDERED: ACETAMINOPHEN 1000 MG/100 ML IV IV ONE (06:54)
[2020-07-06] MEDS ORDERED: ROCURONIUM BROMIDE 10 MG/ML 5 ML VIAL IV ONE (07:55)
[2020-07-06] MEDS ORDERED: LIDOCAINE HCL 2% 2 ML VIAL/AMP(20MG/ML) INFIL ONE (07:55)
[2020-07-06] MEDS ORDERED: ONDANSETRON INJ 2 MG/ML 2 ML VIAL ONE (07:55)
[2020-07-06] MEDS ORDERED: MIDAZOLAM HCL 1 MG/ML 2ML VIAL ONE (07:55)
[2020-07-06] MEDS ORDERED: PROPOFOL IV EMULSION 10 MG/ML 20 ML VIAL IV ONE (07:55)
[2020-07-06] MEDS ORDERED: fentaNYL citrate 100 MCG/2 ML VIAL ONE ×3 (07:56→11:25)
[2020-07-06] MEDS: AZITHROMYCIN 250 MG TAB PO SCH (08:21)
[2020-07-06] MEDS ORDERED: BACITRACIN OINT 15 GM TUBE ONE (08:40)
[2020-07-06] MEDS ORDERED: LIDOCAINE HCL 1% 20 ML VIAL ONE (08:41)
[2020-07-06] MEDS ORDERED: BUPIVACAINE 0.5 % 5 MG/1 ML MPF 30ML VIAL ONE (08:41)
--- NOTE | 2020-07-06 08:43 | History & Physical Bridge Note ---
Date of Service July 06, 2020 History & Physical Bridge Note I have examined the patient, reviewed the History & Physical and in the interval since the performance of the History & Physical I have noted the following changes of clinical significance: no changes noted
[2020-07-06] MEDS ORDERED: LABETALOL HCL IV 5 MG/ML 20ML IV ONE (08:51)
--- NOTE | 2020-07-06 08:58 | Anesthesiology Consultation ---
Date of Service July 06, 2020 Assessment & Plan Chart Review Chart Review: Acceptable Risk for Surgery Consults Requested none History Surgery Operation Date: 07/06/20 09:20 Proposed Procedures p Laparoscopic Cholecystectomy - Paul Benitez MD Height/Weight Height: 6 ft 1 in Weight: 106.6 kg Allergies Allergy/AdvReac Type Severity Reaction Status Date / Time No Known Allergies Allergy Unknown Verified 07/05/20 00:26 Medications Home Medications Medication Instructions Recorded Confirmed Last Taken No Known Home Medications 07/05/20 07/05/20 Unknown Active Medications Generic Name Dose Route Start Last Admin Trade Name Freq PRN Reason Stop Dose Admin Acetaminophen 650 mg 07/05/20 03:57 07/06/20 05:49 Acetaminophen 325 Mg Tab PO 08/04/20 03:56 650 mg Q4H PRN Administration Pain or Fever Azithromycin 250 mg 07/06/20 09:00 07/06/20 08:21 Azithromycin 250 Mg Tab PO 07/13/20 08:59 250 mg QAM ERICK Administration Captopril 25 mg 07/05/20 21:00 07/05/20 20:08 Captopril 25 Mg Tab PO 08/04/20 20:59 25 mg TID ERICK Administration Piperacillin Sod/Tazobactam 115 mls @ 28.75 mls/hr 07/05/20 14:00 07/06/20 05:44 Sod 3.375 gm/ Dextrose IV 07/15/20 13:59 28.8 mls/hr Q8H ERICK Administration Protocol NPO Date Last Intake of Fluids: 07/05/20 Time Last Intake of Fluids: 23:00 Past Medical History Medical History Hx of kidney disease Past Surgical History Surgical History No pertinent past surgical history Social History Smoking Status: Never smoker Hx Alcohol Use: Yes Alcohol type: beer alcohol intake frequency: holidays/special occasions only Hx Substance Use: No Physical Exam Vital Signs Last Vital Signs Temp 37.4 C 07/06/20 07:41 Pulse 60 07/06/20 07:41 Resp 18 07/06/20 07:41 BP 221/115 H 07/06/20 07:41 Pulse Ox 96 07/06/20 07:41 Testing Laboratory Results 07/06/20 05:28 07/06/20 05:28 PT 10.3 Seconds (9.0-12.0) 07/04/20 22: INR 1.0 (0.9-1.1) 07/04/20 22: APTT 28.9 Seconds (21.0-31.0) 07/04/20 22:20 Urine Color Yellow 07/05/20 00:01 Urine Appearance Clear (Clear) 07/05/20 00:01 Urine pH 7.5 (4.5-7.5) 07/05/20 00:01 Ur Specific [place] 1.028 (1.000-1.030) 07/05/20 00:01 Urine Protein 2+ (Negative) H 07/05/20 00:01 Urine Glucose (UA) Negative (Negative) 07/05/20 00:01 Urine Ketones Negative (Negative) 07/05/20 00:01 Urine Nitrite Negative (Negative) 07/05/20 00:01 Ur Leukocyte Esterase Negative (Negative) 07/05/20 00:01 Urine WBC (Auto) 1-5 /hpf (0-5) 07/05/20 00:01 Urine RBC (Auto) 0-4 /hpf (0-4) 07/05/20 00:01 U Hyaline Cast (Auto) 0 /lpf (0-5) 07/05/20 00:01 U Epithel Cells (Auto) 5-10 /lpf (0-5) H 07/05/20 00:01 Urine Bacteria (Auto) Negative (Negative) 07/05/20 00:01
[2020-07-06] MEDS ORDERED: hydrALAZINE HCL 20 MG/ML VIAL ONE (09:03)
[2020-07-06] MEDS ORDERED: ePHEDrine sulfate 50 MG/ML SYR ONE (10:21)
[2020-07-06] MEDS ORDERED: PHENYLEPHRINE 100MCG/ML 5ML SYR ONE (10:21)
[2020-07-06] MEDS ORDERED: GLYCOPYRROLATE 0.2 MG/ML VIAL ONE ×2 (10:21→11:21)
--- NOTE | 2020-07-06 11:07 | Post Operative Brief Note ---
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
[2020-07-06] MEDS ORDERED: ONDANSETRON INJ 2 MG/ML 2 ML VIAL IV PRN ×2 (11:12→11:29)
[2020-07-06] MEDS ORDERED: SODIUM CHLORIDE 0.9% 1000ML 1,000 ML IV SCH (11:15)
[2020-07-06] MEDS ORDERED: NEOSTIGMINE METHYLSULFATE 5 MG/5 ML SYR ONE (11:21)
[2020-07-06] MEDS ORDERED: ATROPINE SULFATE 0.1 MG/ML 10ML SYR IV PRN (11:29)
[2020-07-06] MEDS ORDERED: ePHEDrine sulfate 50 MG/ML AMP IV PRN (11:29)
[2020-07-06] MEDS: fentaNYL citrate 100 MCG/2 ML VIAL IV PRN ×2 (11:31→11:36)
--- NOTE | 2020-07-06 11:50 | Operative Report (OR) ---
DATE OF OPERATION: 07/06/2020 PREOPERATIVE DIAGNOSES: Acute cholecystitis, cholelithiasis. POSTOPERATIVE DIAGNOSES: Acute cholecystitis, cholelithiasis. OPERATION: Laparoscopic cholecystectomy. SURGEON: Paul Benitez MD. ANESTHESIA: General. ESTIMATED BLOOD LOSS: About 10 mL. FINDINGS: Acute cholecystitis. COMPLICATIONS: None. INDICATIONS FOR THE PROCEDURE: This is a 49-year-old gentleman who was admitted to the hospital for acute cholecystitis and the patient is required to do laparoscopic cholecystectomy, possible open, possible cholangiogram. I did talk to the patient about the benefit, the risk, alternate procedure. I indicated the risks may include but not limited to such as bleeding, infection, injury to common bile duct, injury to other organs, anesthesia risk, and even . The patient understands. He signed informed consent and I answered all questions. DETAILS OF PROCEDURE: We brought the patient to the OR, put the patient in the supine position. The patient received SCD on bilateral legs to prevent DVT. Also, patient received 3.375 grams of Zosyn IV for prophylactic antibiotic. The patient received general anesthesia without difficulty. The abdomen was prepped and draped in routine sterile fashion. After time-out, I injected local anesthesia by using 1% lidocaine mixed with 0.5% Marcaine just above the umbilicus. Then I made a small incision just above the umbilicus, opened fascia and opened peritoneum under direct vision, put a Sheela trocar in, connected to CO2 to create pneumoperitoneum, flow rate at 6 liters per minute, pressure not more than 14 mmHg. Once we got a nice pneumoperitoneum, we put the camera in, looked around the abdomen, shows normal finding on the liver. However, patient had significant inflammation and edema on the gallbladder wall, confirming the diagnosis of acute cholecystitis. Then, we put another three 5 mm trocars on the right upper quadrant. Once all trocars in, we used the grasper to hold the base of gallbladder, put in the direction to the diaphragm and another grasper to hold the pouch of gallbladder, put a lateral to expose the triangle of Calot. The cystic duct was identified and mobilized. Then I put two 5 mm metal clips on the proximal cystic duct, one on the distal cystic duct, then used scissors for transection of cystic duct. Rechecked and no bile leak. The cystic artery was identified and mobilized. I put two 5 mm metal clips on the proximal cystic artery, one on the distal cystic artery, then used a scissor for transection of cystic artery. Rechecked, no active bleeding. Then we used the Bovie to take down gallbladder from the liver bed. Rechecked and no active bleeding, no bile leak from the liver bed. Then we removed gallbladder through the catch bag. Then we reinserted the Sheela trocar in, connected to CO2 to create pneumoperitoneum, again looked around the abdomen, no active bleeding, no bile leak from the liver bed. Then we removed all trocars under direct vision. No active bleeding from the trocar sites. Pneumoperitoneum was released, now closed the umbilical incision, fascial layer by using 0 Vicryl [id number] x2, closed subcutaneous layer by using 2-0 Vicryl interruptedly, closed skin by using 4-0 Vicryl continuous running, we closed another three 5 mm trocar site skin only by using 4-0 Vicryl. Then, we put the dressing on. The patient tolerated the procedure well. All instrument, needle and sponge count were correct x2 at the end of the case. The patient was transferred to recovery room in stable condition. After the procedure, I did talk to the patient about the OR finding and the procedure we did. Also, I gave the patient postop care instruction. The patient understands. The specimen was sent to pathology. I attest to the content of the Intraoperative Record and any orders documented therein. Any exception s are noted below.
[2020-07-06] MEDS: HYDROmorphone INJ 2 MG/ML SYR/VIAL IV PRN ×3 (11:54→12:06)
--- NOTE | 2020-07-06 12:23 | Anesthesiology Progress Note ---
Date of Service July 06, 2020 Anesthesia Post Procedure Vital Signs Vital Signs: Temp Pulse Pulse Pulse Resp BP Pulse Ox 07/06/20 12:15 69 23 163/88 H 95 07/06/20 12:05 60 16 159/84 H 92 07/06/20 11:55 60 15 163/91 H 94 07/06/20 11:45 59 L 14 152/87 H 94 07/06/20 11:35 59 L 20 164/90 H 94 07/06/20 11:25 58 L 17 163/97 H 98 07/06/20 11:15 36.4 C L 66 19 170/100 H 96 07/06/20 08:40 36.8 C 60 18 224/123 H 96 07/06/20 08:00 63 07/06/20 07:41 37.4 C 60 18 221/115 H 96 07/06/20 03:17 36.7 C 63 18 167/92 H 96 07/05/20 23:00 37.2 C 57 L 18 171/98 H 95 07/05/20 22:20 58 L 07/05/20 19:50 36.8 C 60 18 203/115 H 96 07/05/20 17:17 66 07/05/20 16:11 37.0 C 76 18 199/115 H 95 07/05/20 12:46 37.0 C 78 20 210/105 H 98 Pain Intensity Abdomen: Pain Intensity: 2 Transfer of Care Handoff Completed per policy Notes Mental Status: alert / awake / arousable and participated in evaluation Patient Amnestic to Procedure: Yes Nausea / Vomiting: adequately controlled Pain: adequately controlled Airway Patency, RR, SpO2: stable & adequate BP & HR: stable & adequate Hydration State: stable & adequate Anesthetic Complications: no major complications apparent and Pt Satisfied with anesthetic care
[2020-07-06] MEDS ORDERED: LACTATED RINGER'S 1,000 ML IV SCH (12:40)
--- NOTE | 2020-07-06 12:46 | Nephrology Consultation ---
Date of Consultation July 06, 2020 Assessment & Plan (1) Hypertensive urgency: 49 Y O M with History of hypertension and Stage 3A CKD admitted with acute cholecystitis and had laparoscopic cholecystectomy. He has been off of all antihypertensive medications for at least last several years. Unknown baseline creatinine. Since admission blood pressure has been elevated >200/120. Has proteinuria and LVH in EKG. -- start on amlodipine 10 mg p.o. daily, hydralazine 10 mg IV as needed for systolic blood pressure above 160 -- if renal function stays stable, electrolyte acceptable, will start on lisinopril and increase dose as needed -- monitor renal function electrolyte daily, would hold DC today as BP still elevated. Will follow Thank you for allowing me to participate in your patient's care. It was a pleasure to see Riki (2) Chronic kidney disease, stage 3a: History of Present Illness Reason for Consultation: Hypertensive urgency, CKD. Attending Physician: David Telles MD History of Present Illness Mr. Chu is a 49-year-old gentlemen with past medical history significant for hypertension, CKD admitted to the hospital with acute cholecystitis. Nephrology consult was requested to manage hypertensive urgency and CKD. Electronic medical records are reviewed in detail during patient's visit. Riki presented to hospital yesterday with acute abdominal pain and found to have acute cholecystitis with cholelithiasis. He had laparoscopic cholecystectomy this morning. On admission he was found to have hypertensive urgency with blood pressure initially 255/130 and since then blood pressure pretty much stayed around similar until recently when there is some improvement. lab showed creatinine 1.4-1.7, electrolyte acceptable. urinalysis with 2+ proteinuria. CT abdomen pelvis showed no postrenal obstruction, has bilateral nephrolithiasis and simple cyst. Riki has history of hypertension and CKD stage 3a baseline creatine was 1.5 almost 5 years ago, no lab sinec then. He was previously seen by Dr. Maynard for 2 years, last visit was 5 years ago although could not find any record in allscripts. He has been otherwise doing well and did not see any physician in last few years and prior to that he was on antihypertensive medication including Amlodipine which was discontinued at some point. He lost 70 lbs from October to March 2020 with a special diet. Currently he was not taking any antihypertensive medication prior to the arrival to hospital. No history of diabetes or coronary artery disease. Nonsmoker. No known family history of chronic kidney disease or end-stage renal disease. Works at [employer]. He just came back from OR after cholecystectomy. Denies any symptoms now, pain manageable. BP still elevated but there has been slight improvement. Allergies Allergy/AdvReac Type Severity Reaction Status Date / Time No Known Allergies Allergy Unknown Verified 07/05/20 00:26 Home Medications Medication Instructions Recorded Confirmed Type No Known Home Medications 07/05/20 07/05/20 History Patient History Medical History (Updated 07/06/20 @ 12:45 by Bianca Dickens MD) Chronic kidney disease, stage 3a Hx of kidney disease Surgical History No pertinent past surgical history Social History Smoking Status: Never smoker Hx Alcohol Use: Yes Alcohol type: beer Hx Substance Use: No Preferred Language: Amharic Communication Ability: Effective [place] Required: No Beliefs That Will Affect Care: None marital status: Current Living Situation: Spouse Other Information That Helps Us Care for You: No Feels Safe at Home: Yes Safety Concerns: Feels Safe At This Time Assistive Devices: None Review of Systems Review of Systems: All systems reviewed & are unremarkable except as noted in HPI & below Physical Exam Constitutional: WD/WN, vitals as above well developed and well nourished; no acute distress Eyes: PERRL, conjunctivae normal, anicteric sclerae ENMT: external ear and nose normal, oropharynx normal Ears: no hearing impairment Neck: trachea midline Respiratory: normal respiratory effort, lungs clear to auscultation no cough Auscultation: no crackles, no rales and no wheezes Cardiovascular: RRR, no murmur, no edema Gastrointestinal (Abdomen): Inspection/Auscultation: normal bowel sounds Percussion/Palpation: abdomen nontender, no guarding and abdomen not rigid Musculoskeletal: Extremities: extremities normal to inspection Gait: normal gait Skin: no rashes, warm and dry Neurologic: moves all extremities and awake Psychiatric: A+Ox3, euthymic affect Results & Data ([facility]) Vital Signs (Past 12 Hours) Vital Signs Temp Pulse Pulse Pulse Resp BP Pulse Ox 07/06/20 12:25 37.2 C 67 23 165/85 H 94 07/06/20 12:15 69 23 163/88 H 95 07/06/20 12:05 60 16 159/84 H 92 07/06/20 11:55 60 15 163/91 H 94 07/06/20 11:45 59 L 14 152/87 H 94 07/06/20 11:35 59 L 20 164/90 H 94 07/06/20 11:25 58 L 17 163/97 H 98 07/06/20 11:15 36.4 C L 66 19 170/100 H 96 07/06/20 08:40 36.8 C 60 18 224/123 H 96 07/06/20 08:00 63 07/06/20 07:41 37.4 C 60 18 221/115 H 96 07/06/20 03:17 36.7 C 63 18 167/92 H 96 PG Care Time/CCT Total # of Minutes Spent Total Time Spent with Patient: Total time spent is greater than 50% in coordination of care (as documented) at patient's floor/unit and/or counseling patient: Coding Level of Care Code 29253 Inpt Consult Level 5 Diagnoses Hypertensive urgency I16.0 Chronic kidney disease, stage 3a N18.31
[2020-07-06] MEDS: oxyCODONE/ACETAMINOPHEN 5mg/325mg TAB PO PRN (13:13)
--- NOTE | 2020-07-06 13:36 | Electrocardiogram Report ---
Test Reason : Blood Pressure : / mmHG Vent. Rate : 066 BPM Atrial Rate : 066 BPM P-R Int : 158 ms QRS Dur : 098 ms QT Int : 438 ms P-R-T Axes : 032 029 073 degrees QTc Int : 459 ms Normal sinus rhythm Poor R wave progression, consider anterior MN vs. lead placement vs. LVH Abnormal ECG When compared with ECG of 04-JUL-2020 22:28, Premature atrial complexes are no longer Present Otherwise no significant change Confirmed by Yogi Atkins ([id number]) on 07/06/2020 1:35:55 PM Referred By: REFERRED SELF Confirmed By:Yogi Atkins
[2020-07-06] MEDS: MoRPHine SULFATE 2 MG/ML CARP IV PRN ×3 (13:57→20:02)
[2020-07-06] MEDS ORDERED: amLODIPine BESYLATE 5 MG TAB PO ONE (14:47)
--- NOTE | 2020-07-06 14:56 | Hospitalist Progress Note ---
Date of Service July 06, 2020 Assessment & Plan (1) Cholecystitis: As seen on CT and gallbladder US Gen surg consulted - s/p cholecystectomy 07/06 Continue Zosyn (2) Pneumonia: Patchy consolidation seen in left lower lobe Patient's and family all diagnosed with COVID on Black Saturday and patient was symptomatic as well although he never received the results for the swab he had done. The rapid antigen test in the ED was negative as was the PCR recheck Zosyn and azithromycin for secondary pneumonia following COVID infection (3) Serum lipase elevation: Serum lipase elevated at 1940, wnl on recheck CT of abdomen pelvis negative for pancreatitis (4) Hypertensive urgency: Blood pressure 180s-212/100-130 on admission and yesterday, now improved to 178/98 He was given labetalol 10 mg IV by the ED with minimal improvement. Suspect his blood pressure has been chronically elevated and will have some resistance especially given multiple aneurysms found on CT and proteinuria Consulted nephrology - will start amlodipine and prn hydralazine. Recheck kidney function am (5) Chronic kidney disease (CKD): Creatinine 1.74 upon admission - patient reports baseline is 1.4-1.5 as of five years ago. Creat back to 1.7 today Patient reports history of kidney disease and was followed by nephrology Dr. Maynard. 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 Follow-up CTA in 6 months is recommended to further characterize. Additionally on CTA of the chest: Ectatic ascending aorta, measuring 4.2 cm. Follow with pcp (7) Kidney cysts: Probable mildly complex exophytic cyst of the inferior pole left kidney, 2.7 cm. This could further be characterized with ultrasound. (8) Esophageal thickening: Mild nonspecific distal esophageal wall thickening. Follow with pcp (9) Pulmonary nodule: On CTA: A few right upper lobe nodular opacities that measure up to 8 mm. An infectious or inflammatory etiology is also favored however pulmonary nodules could appear similar. Therefore, a follow-up chest CT in 3 months to ensure resolution is recommended. Follow with pcp (10) Transaminitis: transaminases peaked at 215 and 271, alk phos 130, now trending down (11) DVT prophylaxis: SCDs, resume dvt prophylaxis when ok with surgery Admission and Anticipated Discharge Date Admission Date: July 05, 2020 Subjective Mr. Chu is s/p cholecystectomy today. He is doing well and has no complaints beyond some soreness at the incision site Review of Systems Constitutional: no fever, no chills and no body aches Respiratory: no cough and no dyspnea Cardiovascular: no chest pain and no palpitations Gastrointestinal: no abdominal pain and no early satiety Genitourinary: no dysuria and no urinary hesitancy Musculoskeletal: no back pain and no joint pain Integumentary: no rash Physical Exam Physical Exam: General: no distress Eyes: normal inspection, PERLL Respiratory: chest non tender, clear to auscultation, normal breath sounds, no respiratory distress, no accessory muscle use Cardiac: regular rate and rhythm, no rub or gallop, no murmur, no edema, no jvd GI/: active bowel sounds, no abd pain or tenderness, soft, non distended Extremities: normal range of motion, normal strength, non tender Neuro/Psych: alert and oriented x 3, normal mood and affect Skin: normal color, dry Results & Data Results & Data ([facility]) Vital Signs (Past 12 Hours) Vital Signs Temp Pulse Pulse Pulse Resp BP Pulse Ox 07/06/20 14:43 36.3 C L 72 14 186/113 H 96 07/06/20 13:40 36.7 C 70 16 188/114 H 95 07/06/20 13:10 36.7 C 66 16 173/92 H 95 07/06/20 12:40 36.7 C 70 14 168/87 H 94 07/06/20 12:25 37.2 C 67 23 165/85 H 94 07/06/20 12:15 69 23 163/88 H 95 07/06/20 12:05 60 16 159/84 H 92 07/06/20 11:55 60 15 163/91 H 94 07/06/20 11:45 59 L 14 152/87 H 94 07/06/20 11:35 59 L 20 164/90 H 94 07/06/20 11:25 58 L 17 163/97 H 98 07/06/20 11:15 36.4 C L 66 19 170/100 H 96 07/06/20 08:40 36.8 C 60 18 224/123 H 96 07/06/20 08:00 63 07/06/20 07:41 37.4 C 60 18 221/115 H 96 07/06/20 03:17 36.7 C 63 18 167/92 H 96 PG Care Time/CCT Total # of Minutes Spent Total Time Spent with Patient: Total time spent is greater than 50% in coordination of care (as documented) at patient's floor/unit and/or counseling patient: Coding Level of Care Code 00095 Subseq Hosp Care Lvl 3 Diagnoses Cholecystitis K81.9 Pneumonia J18.9 Serum lipase elevation R74.8 Hypertensive urgency I16.0 Chronic kidney disease (CKD) N18.9 Aneurysm I72.9 Kidney cysts N28.1 Esophageal thickening K22.8 Pulmonary nodule R91.1 Transaminitis R74.01 DVT prophylaxis Z29.9
[2020-07-06] MEDS: hydrALAZINE HCL 20 MG/ML VIAL IV PRN (20:02)
[2020-07-07] MEDS: MoRPHine SULFATE 2 MG/ML CARP IV PRN (03:08)
[2020-07-07] MEDS: hydrALAZINE HCL 20 MG/ML VIAL IV PRN (03:08)
[2020-07-07] MEDS: oxyCODONE/ACETAMINOPHEN 5mg/325mg TAB PO PRN (04:01)
[2020-07-07] MEDS ORDERED: SIMETHICONE 80 MG CHEW PO PRN (04:13)
[2020-07-07] MEDS: PIPERACILLIN/TAZOBACTAM 3.375 GM in DEXTROSE 5% 100 ML IV SCH (06:22)
[2020-07-07] MEDS: AZITHROMYCIN 250 MG TAB PO SCH (07:46)
--- NOTE | 2020-07-07 08:14 | Surgery Progress Note ---
Date of Service F/U S/p laparoscopic cholecystectomy, pt is doing fine, tolerated diet, no significant abdominal pain, July 07, 2020 Assessment & Plan (1) Acute cholecystitis due to biliary calculus: pt is a 49 year-old male who was admitted to hospital for acute abdominal pain, IMP: acute cholecystitis, cholelithiasis, pancreatitis Plan, I recommend to do laparoscopic cholecystectomy possible open or cholangiogram, D/W benefits, risks and alternatives of the surgery, the risks - infection, bleeding, injury CBD, or other organs, may need ERCP, anesthesia risks and . pt understood, he agrees with the surgery, I answered all questions, -control HTN, -NPO after MN,. -repeat labs in am, CBC, CMP, lipase 07/07/2020 8:13AM doing fine, pt can be discharged home today, the post-op care instruction was given, F/U 2 weeks, , Thanks, Admission and Anticipated Discharge Date Admission Date: July 05, 2020 Subjective Mr. Chu is s/p cholecystectomy today. He is doing well and has no complaints beyond some soreness at the incision site Review of Systems Constitutional: as per Subjective / HPI obesity Eyes: as per Subjective / HPI Ear, Nose, Mouth, Throat: as per Subjective / HPI Respiratory: lung nodule Cardiovascular: as per Subjective / HPI Additional Comments: HTN urgency, aneurysm Gastrointestinal: as per Subjective / HPI Genitourinary: + as per Subjective / HPI and + problem reported (kidney cysts) Musculoskeletal: as per Subjective / HPI Integumentary: as per Subjective / HPI Neurologic: as per Subjective / HPI Psychiatric: as per Subjective / HPI Endocrine: as per Subjective / HPI Hematologic / Lymphatic: as per Subjective / HPI Allergy / Immunological: as per Subjective / HPI Physical Exam Constitutional: WD/WN, vitals as above well developed and well nourished Eyes: PERRL, conjunctivae normal, anicteric sclerae ENMT: external ear and nose normal, oropharynx normal Neck: trachea midline, no thyromegaly Respiratory: normal respiratory effort, lungs clear to auscultation normal respiratory effort Cardiovascular: RRR, no murmur, no edema Rate/Rhythm: regular rate and regular rhythm Heart Sounds: normal S1 and normal S2 Gastrointestinal (Abdomen): normal bowel sounds, soft, nontender, no hepatosplenomegaly Percussion/Palpation: abdomen soft all incisions intact, no redness, NT, ND, BS + Musculoskeletal: no cyanosis or clubbing, extremities motor strength 5/5 Skin: no rashes, warm and dry Neurologic: awake Psychiatric: Orientation: alert and oriented x 3 Results & Data ([facility]) Vital Signs (Past 12 Hours) Vital Signs Temp Pulse Resp BP Pulse Ox 07/07/20 04:02 181/89 H 07/07/20 03:11 36.6 C 72 18 216/132 H 95 07/06/20 23:44 37.0 C 75 18 178/93 H 94 07/06/20 21:10 168/99 H PG Care Time/CCT Total # of Minutes Spent Total Time Spent with Patient: Total time spent is greater than 50% in coordination of care (as documented) at patient's floor/unit and/or counseling patient: Coding Level of Care Code 16266 Subseq Obs Care Lvl 3 Diagnoses Acute cholecystitis due to biliary calculus K80.00
[2020-07-07] MEDS ORDERED: amLODIPine BESYLATE 5 MG TAB PO SCH (09:00)
[2020-07-07 09:08] LABS: Albumin Level 3.4 gm/dl (3.4-5.0); BUN Creatinine Ratio 15.4 (10-20); Calcium 9.5 mg/dl (8.5-10.1); Creatinine Clr Calc Pharmacy 73.6 ml/min; Est GFR (African American) 59.6; Est GFR (Non-African American) 51.4; Phosphorus 3.7 mg/dl (2.5-4.9); Potassium 3.8 mmol/L (3.5-5.1)
--- NOTE | 2020-07-07 09:29 | Electrocardiogram Report ---
Test Reason : Blood Pressure : / mmHG Vent. Rate : 075 BPM Atrial Rate : 075 BPM P-R Int : 162 ms QRS Dur : 110 ms QT Int : 408 ms P-R-T Axes : 046 028 064 degrees QTc Int : 455 ms Normal sinus rhythm Left ventricular hypertrophy with QRS widening and repolarization abnormality Abnormal ECG When compared with ECG of 06-JUL-2020 06:55, No significant change was found Confirmed by Yogi Atkins ([id number]) on 07/07/2020 9:29:32 AM Referred By: REFERRED SELF Confirmed By:Yogi Atkins
[2020-07-07] MEDS ORDERED: lisinopril 10 MG TAB PO SCH (09:30)
--- NOTE | 2020-07-07 12:24 | Nephrology Progress Note ---
Date of Service July 07, 2020 Assessment & Plan (1) Hypertensive urgency: 49 Y O M with History of hypertension and Stage 3A CKD admitted with acute cholecystitis and had laparoscopic cholecystectomy. He has been off of all antihypertensive medications for at least last several years. Unknown baseline creatinine. Since admission blood pressure has been elevated >200/120. Has proteinuria and LVH in EKG. Renal function stable, electrolyte acceptable, overall clinically stable alt farzad blood pressure remained elevated. -- as amlodipine and lisinopril was just started, it may take some time to see the full effect, although blood pressure still elevated, overall otherwise clini estevan stable, kidney function stable, okay to be discharged with close outpatient lab monitoring. Please schedule follow-up with Dr. Bo next few weeks and establish care with the PCP. Advised patient to continue to monitor blood pressure at home. -- advised to keep well hydrated, avoid all NSAIDs, limit salt in diet to less than 2 grams per day. Will follow (2) Chronic kidney disease, stage 3a: Admission and Anticipated Discharge Date Admission Date: July 05, 2020 Rachell Lyn was seen and examined in his room this morning. Overall he feels well, denies any significant abdominal pain at the laparoscopy on site. Tolerated soft diet this morning. Blood pressure remained elevated however there has been some improvement. Kidney function electrolytes stable. Review of Systems Review of Systems: All systems reviewed & are unremarkable except as noted in Subjective Physical Exam Constitutional: WD/WN, vitals as above Neck: normal visual inspection Respiratory: normal respiratory effort, lungs clear to auscultation Cardiovascular: RRR, no murmur, no edema Skin: no rashes, warm and dry Neurologic: awake; no focal motor deficits and not confused Psychiatric: A+Ox3, euthymic affect Results & Data ([facility]) Vital Signs (Past 12 Hours) Vital Signs Temp Pulse Pulse Resp BP Pulse Ox 07/07/20 10:22 73 07/07/20 08:27 37.0 C 60 20 184/101 H 95 07/07/20 04:02 181/89 H 07/07/20 03:11 36.6 C 72 18 216/132 H 95 PG Care Time/CCT Total # of Minutes Spent Total Time Spent with Patient: Total time spent is greater than 50% in coordination of care (as documented) at patient's floor/unit and/or counseling patient: Coding Level of Care Code 22932 Subseq Hosp Care Lvl 3 Diagnoses Hypertensive urgency I16.0 Chronic kidney disease, stage 3a N18.31
[2020-07-07] MEDS ORDERED: lisinopril 10 MG TAB PO ONE (13:03)
--- NOTE | 2020-07-07 13:59 | Discharge Summary ---
Date of Service July 07, 2020 Admission HPI Per Admitting Provider The patient is a 49-year-old male with a past medical history including hypertension, CKD, and obesity. He presents to the emergency department with acute onset abdominal pain as noted above after eating an omelette with sausage. Upon questioning, he reports that the eggs were initially purchased in March by his son who was at college, who brought them home recently. He also reports that he had been followed by nephrology Dr. Maynard several years ago, had been on blood pressure medications, that were ultimately stopped because he had had weight loss and blood pressure improved. He has not followed up with anyone in the medical profession for approximately the past 5 years. Work-up in the emergency department included the following abnormal laboratories: WBC 16.41 with left shift, creatinine 1.74, BUN 32, glucose 109, AST 85, albumin 3.3, lipase 1940, and negative COVID-[address] scan of abdomen and pelvis was normal. Principal Diagnosis Cholecystitis Discharge Exam Constitutional WD/WN, vitals as above Respiratory normal respiratory effort, lungs clear to auscultation Cardiovascular RRR, no murmur, no edema Gastrointestinal (Abdomen) normal bowel sounds, soft, nontender, no hepatosplenomegaly Musculoskeletal no cyanosis or clubbing, extremities motor strength 5/5 Skin no rashes, warm and dry Neurologic moves all extremities and awake Psychiatric A+Ox3, euthymic affect Discharge Data Allergies Allergy/AdvReac Type Severity Reaction Status Date / Time No Known Allergies Allergy Unknown Verified 07/05/20 00:26 Consultations 07/05/20 00:53 ED Decision to Admit Stat 07/05/20 09:21 Consult General Surgery Routine 07/06/20 08:36 Consult Nephrology Routine Procedures Performed Operation Date: 07/06/20 09:20 Actual Procedures p Laparoscopic Cholecystectomy(Not Applicable) - Paul Benitez MD Ordered Studies 07/04/20 22:52 CT angio chest dissec wo/w con Urgent 07/04/20 22:55 CT angio abdomen pelvis w con Urgent 07/05/20 09:00 US gallbladder Urgent Hospital Course (1) Cholecystitis: As seen on CT and gallbladder US Gen surg consulted - s/p cholecystectomy 07/06 Zosyn perioperatively (2) Pneumonia: Patchy consolidation seen in left lower lobe Patient's and family all diagnosed with COVID on Black Saturday and patient was symptomatic as well although he never received the results for the swab he had done. The rapid antigen test in the ED was negative as was the PCR recheck Zosyn and azithromycin for secondary pneumonia following COVID infection - will discharge with augementin/azithromycin for a total of 5 days of treatment (3) Hypertensive urgency: Asymptomatic throughout this admission Blood pressure 180s-212/100-130 on admission and yesterday, this afternoon he is 180/102 Troponins negative x 2 Suspect his blood pressure has been chronically elevated and will have some resistance especially given multiple aneurysms found on CT and proteinuria Consulted nephrology - initiated amlodipine 10 mg daily and lisinopril 20 mg daily (4) Chronic kidney disease (CKD): Creatinine 1.74 upon admission - patient reports baseline is 1.4-1.5 as of five years ago. Creat back to 1.56 today - will start lisinopril today now that he is at his baseline Patient reports history of kidney disease and was followed by nephrology Dr. Maynard. Nephrology consulted - patient will follow up in clinic with Dr. 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 Follow-up CTA in 6 months is recommended to further characterize. Additionally on CTA of the chest: Ectatic ascending aorta, measuring 4.2 cm. Follow with pcp (7) Kidney cysts: Probable mildly complex exophytic cyst of the inferior pole left kidney, 2.7 cm. This could further be characterized with ultrasound. (8) Esophageal thickening: Mild nonspecific distal esophageal wall thickening. Follow with pcp (9) Pulmonary nodule: On CTA: A few right upper lobe nodular opacities that measure up to 8 mm. An infectious or inflammatory etiology is also favored however pulmonary nodules could appear similar. Therefore, a follow-up chest CT in 3 months to ensure resolution is recommended. Follow with pcp (10) Transaminitis: transaminases peaked at 215 and 271, alk phos 130, now trending down. (11) Hepatic lesion: Indeterminate 1.5 cm hypodensity of the right hepatic lobe on image 241 series 7. Probable cyst of the right hepatic lobe measures 1.4 cm. Follow up with pcp (12) DVT prophylaxis: SCDs Total Time Total Time Spent Total Time Spent (In Minutes): greater than 30 minutes Discharge Plan Discharge Items Patient Disposition: Home - Self-Care Reason For Visit: HYPERTENSIVE URGENCY, FOOD POISONING, PANCREATITIS Discharge Diagnosis: S/P laparoscopic cholecystectomy Condition on Discharge: Good Activity: As commented below Lifting: No more than 25 pounds Lifting Comment: for 4 weeks Bathing: May shower/bathe in 3 days Sexual Activity: After two weeks Exercise/Sports: Rest today Driving/Machine Use: no driving while taking pain medicine Non-emergency contact: Surgeon Call non-emergency contact if: you have any medication questions, your symptoms worsen, your pain is not controlled and your pain is worsening Follow-up/Referrals: Manjinder Maynard MD [Physician] - 07/13/20 1:30 pm Asad Anand DO [Physician] - 07/11/20 1:30 pm Paul Benitez MD [Physician] - 07/28/20 11:00 am (follow up Dr. Benitez 2 weeks, Agree-I have documented within the medical record.) Diet: Heart Healthy Ambulatory Orders: Basic Metabolic Panel (Routine) Timeframe: 20200712 Location: Determined by Patient Ordered By: Estella Do Attending Provider Instructions: (1) Cholecystitis: You had a laparoscopic cholecystectomy on 07/06 to remove your inflamed gallbladder. You should keep the dressing on for 4 days (2) Pneumonia: In the left lower lobe Continue antibiotics as prescribed (3) Hypertensive urgency: Your blood pressure was very high during your stay. Your blood pressure has likely been running high for quite a while which is why you did not have accompanying symptoms. You will go home with prescriptions for amlodipine and lisinopril. Take your blood pressure every day at different times of the day after sitting quietly for at least five minutes with legs uncrossed. Keep a log to take to your next doctor's appointment Please see enclosed information on hypertension for warning signs and when to call your provider (4) Chronic kidney disease (CKD): Your creatinine was 1.74 upon admission, today it is 1.5. We will need to follow your kidney function to see what your baseline is at this time. You will need repeat lab work on 07/12 so that you can discuss results with Dr. Maynard at your appointment the following day. (5) Aneurysm: On CT: Saccular aneurys of the celiac trunk - Follow-up CTA in 6 months is recommended to further characterize. Additionally on CTA of the chest: Ectatic (ectasia is essentially an enlargement of the artery that doesn't quite meet criteria for an aneurysm) ascending aorta, measuring 4.2 cm. Follow with your doctor (6) Kidney cysts: Probable mildly complex exophytic cyst of the inferior pole left kidney, 2.7 cm. This could further be characterized with ultrasound. Follow up with nephrology (7) Esophageal thickening: Mild nonspecific distal esophageal wall thickening. Follow with your doctor (8) Pulmonary nodule: On CTA: A few right upper lobe nodular opacities that measure up to 8 mm. Unclear if this is due to infection or pulmonary nodules. A follow-up chest CT in 3 months is recommended to ensure resolution. Follow with your doctor Pending Studies at Discharge: No Stand-Alone Forms: My [facility] [employer], Smoking Cessation Medications and DC Order Prescriptions: New azithromycin 250 mg Tablet 250 mg PO QAM Qty: 2 RF: 0 amlodipine [Norvasc] 5 mg Tablet 10 mg PO QAM Qty: 30 RF: 1 lisinopril 20 mg tablet 20 mg PO DAILY Qty: 30 RF: 1 amoxicillin-pot clavulanate [Augmentin] 875-125 mg tablet 1 tab PO BID Qty: 6 RF: 0 oxycodone-acetaminophen [Percocet] 5-325 mg tablet 1 tab PO Q4H Qty: 10 RF: 0 No Action No Known Home Medications RF: 0 Discharge Orders: Discharge Order (Routine); Ordered 07/07/20 Ordered By: Estella Vasquez/Other Patient Handouts: After Gallbladder Surgery, Cholecystectomy, Having Laparoscopic Cholecystectomy, Taking Amlodipine, DASH Plan Eat Heart Healthy Food, Hypertension Dc, Azithromycin tablets, Acetaminophen Oxycodone tablets, Amoxicillin Clavulanic Acid tablets, Amlodipine tablets, Lisinopril tablets Admission Data Admit Date/Time: 07/05/20 01:47 Attending Provider: David Telles Admit Provider: Josias Ann Primary Care Provider: PCP,NO Other Providers: David Telles ; Josias Ann ; Bianca Dickens Mark Other Interventions: Discharge Summary Assessment (RN) Last Done: 07/07/20 15:40 Supervising Physician Co-Signing Physician Notes I supervised Estella Mock NP on this patient's care. I examined the patient today independently of her. I discussed the plan of care with her with the plan being as written in her note except for any following changes/exceptions: None. Coding Level of Care Code D/C Day Management >30 mins Diagnoses Cholecystitis K81.9 Pneumonia J18.9 Hypertensive urgency I16.0 Chronic kidney disease (CKD) N18.9 Serum lipase elevation R74.8 Aneurysm I72.9 Kidney cysts N28.1 Esophageal thickening K22.8 Pulmonary nodule R91.1 Transaminitis R74.01 Hepatic lesion K76.9 DVT prophylaxis Z29.9
== END 2020-07-07 17:24 | disposition home or self-care (01) | DRG 417 ==
LOC: ED 22:05 → SUATTDRO 07-05 01:47 → 2S 07-05 01:47